=== PATIENT | female | born 1930 | race Caucasian/White ===

== ENCOUNTER 2017-09-30 10:56 | Outpatient (RCR) | payer MEDICARE, BC ==
[2016-08-19 13:26] VITALS: Ht 165.1 cm; Wt 64.8 kg
[2017-07-23] MEDS: HEPARIN FLSH (PORT) 500 UN/5ML IVP PRN (12:49)
[2017-08-22] MEDS: HEPARIN FLSH (PORT) 500 UN/5ML IVP PRN (10:25)
[2017-08-22 10:38] LABS: PLATELET COUNT, AUTOMATED 242 K/uL (150-450)
--- NOTE | 2017-08-22 11:43 | ONC Progress Note - NP.Halsey ---
Patient History Date of Service Aug 22, 2017 Reason For Visit/HPI Berta is here today for a routine follow up visit for surveillance of endometrial carcinoma. HISTORY OF PRESENT ILLNESS Berta is here today for a routine follow up visit for surveillance of endometrial carcinoma. She is doing well in general, except for residual chronic neuropathy due chemotherapy. She is currently taking gabapentin 600 mg twice daily, with only minimal relief. She has also increased urinary frequency and incontinence. She has chronic edema of the right lower extremity, but otherwise she denies acute concerns. Problem List (1) Adenocarcinoma of endometrium, stage 3 (2) Peripheral neuropathy Oncology History Patient is 86-year-old female who was diagnosed with stage IIIC-1 in April of 2014 after she developed abnormal vaginal bleeding. 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 Patient was referred to Dr. Kimberly Jenkins and underwent total abdominal hysterectomy with bilateral salpingo-oophorectomy with lymphadenectomy and pelvic washing done on May 12, 2014. 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 The tumor was 5 cm with 100% invasion into the myometrium with focal serosal involvement. Lymphovascular invasion was positive, but no cervical stromal or parametrial involvement. She was staged as stage IIIC-1 (pT3a pN1). She received adjuvant chemotherapy with carboplatin and Taxol for four cycles, completed on September. She also received external beam radiation therapy and intracavitary radiation therapy. Her last CA125 from 03/2017 was 5. CA125 from today is pending. Medical History Past Medical History 1. Uterine cancer. 2. Melanoma of the cheek in 2005. 3. Pancreatitis in 2012. 4. Atrial fibrillation. 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 Past Surgical History 1. Radiacl hysterectomy and BSO. 2. Mastectomy. 3. Tonsillectomy. Family History: FH: breast cancer MOTHER, Onset:68 FH: colon cancer GRANDFATHER, Onset:70 Psychosocial History Social History Patient never smoked. She reports she does not drink alcohol or use illicit drugs. Smoking History: No Smoking Status: Never Smoker Exposure to Second Hand Smoke?: No Medications and Allergies Active Scripts Gabapentin (GABAPENTIN) 300 Mg Capsule, 300 MG PO BID, #60 CAPSULE Prov:AMBROCIO GALDAMEZ MD 09/12/16 Reported Medications Metoprolol Tartrate (METOPROLOL TARTRATE) 25 Mg Tablet, 25 MG PO BID, TAB 08/22/17 Pyridoxine Hcl (VITAMIN B-6) 25 Mg Tablet, 25 MG PO DAILY 08/22/17 Cyanocobalamin (Vitamin B-12) (VITAMIN B-12) 1,000 Mcg Tablet, 1000 MCG PO DAILY 08/22/17 Furosemide (LASIX) 20 Mg Tablet, 1 TAB PO PRN, TAB 01/25/17 Potassium Gluconate (POTASSIUM) 99 Mg Tablet, 99 MG PO PRN 01/25/17 Apixaban (ELIQUIS) 2.5 Mg Tablet, 2.5 MG PO 09/14/16 Multivitamin (MULTI-VITAMIN DAILY) 1 Each Tablet, 1 EACH PO BID 08/16/16 Calcium Carbonate (CALCIUM) 500 Mg Tab.chew, 500 MG PO BID, TAB.CHEW 08/16/16 Discontinued Reported Medications Carvedilol (COREG) 12.5 Mg Tablet, 12.5 MG PO BID, #10 TAB 01/25/17 Allergies: Coded Allergies: No Known Drug Allergies (Unverified , 05/03/17) Review of System/Physical Exam Review of Systems Constitutional: Denies Appetite/Weight Change, Denies Fever/Chills/Sweating, Denies Recent Infection, Denies Other Cardiovascular: Denies Chest Pain, Denies Orthopnea, Denies Edema, Denies Palpitations, Denies Other Respiratory: Denies Cough, Denies Expectoration, Denies Hemoptysis, Denies Shortness of Breath, Denies Wheezing, Denies Other HEENT: No Tinnitus, No Hearing Problems, No Epistaxis, No Nasal Discharge, No Sore Throat, No Mouth Ulcers, No Other Gastrointestinal: Other, No Nausea, No Vomitting, No Diarrhea, No Constipation, No Heart Burn, No Swallowing Difficulties, No Abdominal Pain Genitourinary: Positive for Other (Urinary frequence and incontinence. ) Endocrine: Denies Diabetes, Denies Hot Flashes, Denies Thyroid Issues, Denies Enlarged Lymph Nodes, Denies Other Hematologic: Denies Bruising, Denies Bleeding, Denies Fatigue, Denies Weakness , Denies Other Musculoskeletal: Positive for Other (Weakness. ) Neurologic: Numbness of Hands, Tingling of Hands, Numbness of Feet, Tingling of Feet Psychiatric: No Anxiety, No Depression, No Other Skin: Denies Skin Rash, Denies Lumps, Denies Erythema, Denies Dry Skin, Denies Moist Skin, Denies Other Physical Exam Vital Signs Temperature: 97.0 Pulse: 115 BP Systolic: 128 BP Diastolic: 85 Respiratory Rate: 16 O2 SAT: 91 O2 Delivery: Room Air Height (inches) 65.00 Weight lb: 145 Weight oz: 6.0 Weight Kg (Med): 67.22 Pain: 0 General: Stable, Well Developed, Well Nourished, Not In Acute Distress, Not Other HEENT: No Trauma, No Conjunctivitis, No Icterus, No Mucositis, No Oral Thrush, No Sinus Tenderness, No Other Neck: Supple, No Thyromegaly, No Other Lungs: Clear to Auscultation, Not Percussed Bilaterally, Not Other Heart: Regular Rate, Regular Rhythm, No Gallops, No Murmurs Abdomen: Soft and Nontender, No Hepatosplenomegaly, No Masses Extremities: No Cyanosis, No Clubbing, No Edema, No Other Lymphadenopathy: None Psychiatric: Mood appears normal, Affect appears normal Skin: No Skin Rashes, No Bruising, No Purpura, No Moist Desquamation, No Dry Desquamation, No Erythema, No Mild Erythema, No Moderate Erythema, No Severe Erythema, No Induration, No Other Other Port in left upper chest noted. Diagnostic Studies Diagnostic Studies Laboratory Laboratory Tests 08/22/17 10:30 Laboratory Tests 08/22/17 10:30: White Blood Count 5.9, Red Blood Count 4.33, Hemoglobin 13.7, Hematocrit 39.9, Mean Corpuscular Volume 92.1, Mean Corpuscular Hemoglobin 31.6, Mean Corpuscular Hemoglobin Concent 34.3, Red Cell Distribution Width 14.7, Platelet Count 242, Mean Platelet Volume 6.6, Neutrophils (%) (Auto) 72.0, Lymphocytes (% ) (Auto) 16.1, Monocytes (%) (Auto) 8.5, Eosinophils (%) (Auto) 2.3, Basophils ( %) (Auto) 1.1, Nucleated RBC Relative Count (auto) 0.1, Neutrophils # (Auto) 4.2 , Lymphocytes # (Auto) 0.9, Monocytes # (Auto) 0.5, Eosinophils # (Auto) 0.1, Basophils # (Auto) 0.1, Nucleated RBC Absolute Count (auto) 0.01, Sodium Level 140, Potassium Level 4.1, Chloride Level 108, Carbon Dioxide Level 23, Blood Urea Nitrogen 13, Creatinine 0.80, Glomerular Filtration Rate Calc > 60.0, Random Glucose 86, Calcium Level 9.0, Total Bilirubin 0.7, Aspartate Amino Transf (AST/SGOT) 19, Alanine Aminotransferase (ALT/SGPT) 28, Alkaline Phosphatase 78, Total Protein 6.6, Albumin 3.8 Assessment and Plan Assessment & Plan 1. Stage IIIC (pT3a pN1c M0) endometrial adenocarcinoma, FIGO grade 3 with 100 % invasion of the myometrium. Berta received adjuvant chemotherapy with carboplatin and Taxol for six cycles, completed September 30, 2014. She received also adjuvant external beam radiation therapy and intracavitary seed implant therapy. She is doing very well clinically and without evidence of recurrent disease. CA-125 was 5 last visit 03/2017 and pending today. She will return to the office for a follow up visit in four months with CBC, CMP and CA125. She will have her port flushed monthly. 2. Chemotherapy-induced neuropathy. She will continue gabapentin 600 mg twice daily. 3. History of atrial fibrillation. Anticoagulated with Eliquis. 4. History of melanoma of the cheek in 2005. PLAN 1. Continue active surveillance. 2. Patient to return for follow up in 4 months with CBC, CMP and CA-125. 3. Continue Gabapentin 600 mg 2 times daily. 4. Patient to contact the clinic for any problems or concerns. I personally spent a total of 25 minutes in this visit. Of that 15 minutes was counseling/coordination of patient's care. See my note above for details. MAGO HARRELL MD Aug 22, 2017 11:43
[~2017-09-30] VITALS: Ht 165.1 cm; Wt 64.8 kg
[~2017-09-30 10:56] MED LIST: ACET-2007 PO; ALEN70TA2 PO; ALPR-429 PO; ALPR-445 PO; ALTEPLASE RECOMB 2 MG VIAL IVP PRN; AMIT-106 PO; APIX2.5T PO; APIX5TAB PO; CALC-18 PO; CALC-734 PO; CAR6.25 PO; CARV12.577 PO; CARV12.578 PO; CARV25TA77 PO; CARV25TA78 PO; CIPR-214 PO; CLON-327 PO; CLON1 PO; CYA1000 PO; CYAN50TA3 PO; DEXTROSE 5%(*) 100 ML BAG 100 ML IVPB PRN; DIAZ2TAB74 PO; DOC100 PO; DOCU-202 PO; DOCU-416 PO; FISH1200 PO; FURO20TA19 PO; GABA-503 PO; GABA-549 PO; LEVO-85 PO; LIDOCAINE/SOD BICARB 8.4% SYR ID PRN; LUTE10TA3 PO; MECL12.5 PO; METO25TA93 PO; MULT-885 PO; MULT1TAB54 PO; NIAC50TA13 PO; NS(*) 0.9% 100 ML BAG 100 ML IVPB PRN; NS(*) 0.9% 500 ML BAG 500 ML IV PRN; OMEG-36 PO; ONDA8TAB91 PO; PAN40 PO; PER PO; POTA99TA6 PO; PRA20 PO; PYRI25TA18 PO; SUC1 PO; TRAM-420 PO; WATER STERILE 10 ML VIAL IVP PRN; [UNRECOGNIZED DRUG - CODE] PO; [UNRECOGNIZED DRUG - CODE] PO; [UNRECOGNIZED DRUG - CODE] PO
[2017-09-30 11:04] VITALS: BP 112/58
[2017-09-30] MEDS: HEPARIN FLSH (PORT) 500 UN/5ML IVP PRN (11:39)
== END 2017-10-21 ==
LOC: SPU 10:56
PROVIDERS: ATTEND Internal Medicine Hematology
DX: Z85.42 Personal history of malignant neoplasm of other parts of uterus (principal); Z92.21 Personal history of antineoplastic chemotherapy; Z92.3 Personal history of irradiation; G62.9 Polyneuropathy, unspecified; I48.91 Unspecified atrial fibrillation; Z85.820 Personal history of malignant melanoma of skin; Z79.899 Other long term (current) drug therapy
CPT/HCPCS: 36591; 85025; 86304; 96523; J1642; 82040; 82247; 82310; 82374; 82435; 82565; 82947; 84075; 84132; 84155; 84295; 84450; 84460; 84520

== ENCOUNTER 2017-10-04 13:00 | Emergency (ER) | payer MEDICARE, BC ==
[2016-08-19 13:26] VITALS: Ht 165.1 cm; Wt 65.9 kg
[~2017-10-04] VITALS: Ht 165.1 cm; Wt 65.9 kg
[~2017-10-04 13:00] MED LIST changes: -ALTEPLASE RECOMB 2 MG VIAL IVP PRN; -DEXTROSE 5%(*) 100 ML BAG 100 ML IVPB PRN; -LIDOCAINE/SOD BICARB 8.4% SYR ID PRN; -NS(*) 0.9% 100 ML BAG 100 ML IVPB PRN; -NS(*) 0.9% 500 ML BAG 500 ML IV PRN; -WATER STERILE 10 ML VIAL IVP PRN
--- NOTE | 2017-10-04 13:06 | ER Report ---
History and Physical Time Seen By MD: 13:06 HPI/ROS CC: Palpitations HPI: 87-year-old female with past medical history of essential hypertension, vertigo , peripheral neuropathy, adenocarcinoma of the endometrium, atrial fibrillation transient, glaucoma, urinary tract infections, closed a history of fracture. Patient starting at approximately 10:30 this morning had a rapid heart rate which she assumed was atrial fibrillation. It is coming gone. She then had chest pressure. That has resolved but she did come to the emergency department. She was nauseated at that time and slight diaphoresis but at present she is without nausea or diaphoresis. Her shortness of breath has resolved. There are no other complaints. Her pain scale is 0 out of 10. The tachycardia was transient. ROS: 12 point review of systems essentially negative other than what's mentioned in history of present illness. NURSES AND OLD MEDICAL RECORDS: Reviewed PMH: Reviewed SURGICAL HX: Reviewed FAMILY HX: Noncontributory SOCIAL HX: Patient denies smoking alcohol or illicit drugs. VITAL SIGNS: Reviewed CONSTITUTIONAL: 87-year-old female in minimal to moderate distress. PHYSICAL EXAM: HEENT: Pupils equal round reactive to light and accommodate, EOMI, tympanic membranes pearly white umbo present with good light reflex. Lips dry mucous membranes moist gums nonbleeding uvula midline and rises equally with phonation, oropharynx noninjected, teeth intact. NECK: Neck supple, thyroid not appreciated, anterior and posterior cervical lymphadenopathy not appreciated. Trachea midline and rises equally with phonation. CARDIAC: S1-S2 regular rate rhythm no murmurs rubs or gallops. LUNGS: Lungs clear bilaterally posteriorly in all fraga. Good air movement. ABDOMEN: Abdomen soft, nondistended, bowel sounds active in all 4 quadrants, no bruits noted, no CVA tenderness. MUSCULOSKELETAL: Strength 5 out of 5 x 4 extremities, no deformities noted. NEUROLOGIC: Patient alert and oriented by 3 Allergies: Coded Allergies: No Known Drug Allergies (Unverified , 05/03/17) Home Meds Active Scripts Gabapentin (GABAPENTIN) 300 Mg Capsule, 300 MG PO BID, #60 CAPSULE Prov:AMBROCIO GALDAMEZ MD 09/12/16 Reported Medications Metoprolol Tartrate (METOPROLOL TARTRATE) 25 Mg Tablet, 25 MG PO BID, TAB 08/22/17 Pyridoxine Hcl (VITAMIN B-6) 25 Mg Tablet, 25 MG PO DAILY 08/22/17 Cyanocobalamin (Vitamin B-12) (VITAMIN B-12) 1,000 Mcg Tablet, 1000 MCG PO DAILY 08/22/17 Apixaban (ELIQUIS) 2.5 Mg Tablet, 2.5 MG PO 09/14/16 Multivitamin (MULTI-VITAMIN DAILY) 1 Each Tablet, 1 EACH PO BID 08/16/16 Calcium Carbonate (CALCIUM) 500 Mg Tab.chew, 500 MG PO BID, TAB.CHEW 08/16/16 Discontinued Reported Medications Furosemide (LASIX) 20 Mg Tablet, 1 TAB PO PRN, TAB 01/25/17 Potassium Gluconate (POTASSIUM) 99 Mg Tablet, 99 MG PO PRN 01/25/17 Hx Smoking: No Smoking Status: Never Smoker Exposure to Second Hand Smoke?: No Hx Substance Use Disorder: No Hx Alcohol Use: Yes (yanique before bedtime) Constitutional Vital Sign - Last 24 Hours 10/04/17 10/04/17 10/04/17 10/04/17 13:09 13:10 13:15 13:30 Temp 97.8 Pulse 63 64 ??? Resp 18 25 B/P (MAP) 144/83 (103) 144/83 Pulse Ox 97 96 O2 Delivery Room Air 10/04/17 10/04/17 10/04/17 10/04/17 13:36 13:45 14:00 14:36 Pulse 64 60 66 Resp 10 8 B/P (MAP) 156/83 (107) 125/76 (92) 155/76 (102) Pulse Ox 94 92 94 O2 Delivery Room Air 10/04/17 10/04/17 14:39 14:42 Pulse 68 69 B/P (MAP) 140/94 (109) 158/84 (108) Pulse Ox 96 95 O2 Delivery Room Air Room Air Medical Decision Making Data Points Result Diagram: 10/04/17 1320 10/04/17 1320 Laboratory Hematology Test 10/04/17 13:20 Red Blood Count 4.83 M/uL (4.17-5.56) Mean Corpuscular Volume 90.9 fL (80.0-96.0) Mean Corpuscular Hemoglobin 31.0 pg (26.0-33.0) Mean Corpuscular Hemoglobin Concent 34.1 g/dL (32.0-36.0) Red Cell Distribution Width 14.3 % (11.5-14.5) Mean Platelet Volume 7.1 fL (7.2-11.1) Neutrophils (%) (Auto) 77.5 % (39.4-72.5) Lymphocytes (%) (Auto) 12.8 % (17.6-49.6) Monocytes (%) (Auto) 6.7 % (4.1-12.4) Eosinophils (%) (Auto) 2.1 % (0.4-6.7) Basophils (%) (Auto) 0.9 % (0.3-1.4) Nucleated RBC Relative Count (auto) 0.1 /100WBC Neutrophils # (Auto) 4.7 K/uL (2.0-7.4) Lymphocytes # (Auto) 0.8 K/uL (1.3-3.6) Monocytes # (Auto) 0.4 K/uL (0.3-1.0) Eosinophils # (Auto) 0.1 K/uL (0.0-0.5) Basophils # (Auto) 0.1 K/uL (0.0-0.1) Nucleated RBC Absolute Count (auto) 0.00 K/uL D-Dimer Quantitative (PE/DVT) 0.31 ug/ml (0-0.50) Sodium Level 141 mmol/L (137-145) Potassium Level 3.7 mmol/L (3.5-5.0) Chloride Level 109 mmol/L (98-107) Carbon Dioxide Level 22 mmol/L (22-31) Blood Urea Nitrogen 17 mg/dl (7-18) Creatinine 0.80 mg/dl (0.52-1.04) Glomerular Filtration Rate Calc > 60.0 Random Glucose 106 mg/dl (75-110) Calcium Level 9.8 mg/dl (8.4-10.2) Magnesium Level 1.9 mg/dl (1.7-2.2) Total Bilirubin 0.7 mg/dl (0.2-1.3) Aspartate Amino Transf (AST/SGOT) 20 U/L (0-35) Alanine Aminotransferase (ALT/SGPT) 29 U/L (0-56) Alkaline Phosphatase 68 U/L (0-126) Troponin I < 0.012 ng/ml B-Type Natriuretic Peptide 581 pg/ml (0-100) Total Protein 6.8 gm/dl (6.3-8.2) Albumin 3.9 g/dl (3.5-5.0) Chemistry Test 10/04/17 13:20 White Blood Count 6.0 k/uL (4.5-11.0) Red Blood Count 4.83 M/uL (4.17-5.56) Hemoglobin 15.0 g/dL (12.0-16.0) Hematocrit 43.9 % (34.0-47.0) Mean Corpuscular Volume 90.9 fL (80.0-96.0) Mean Corpuscular Hemoglobin 31.0 pg (26.0-33.0) Mean Corpuscular Hemoglobin Concent 34.1 g/dL (32.0-36.0) Red Cell Distribution Width 14.3 % (11.5-14.5) Platelet Count 283 K/uL (150-450) Mean Platelet Volume 7.1 fL (7.2-11.1) Neutrophils (%) (Auto) 77.5 % (39.4-72.5) Lymphocytes (%) (Auto) 12.8 % (17.6-49.6) Monocytes (%) (Auto) 6.7 % (4.1-12.4) Eosinophils (%) (Auto) 2.1 % (0.4-6.7) Basophils (%) (Auto) 0.9 % (0.3-1.4) Nucleated RBC Relative Count (auto) 0.1 /100WBC Neutrophils # (Auto) 4.7 K/uL (2.0-7.4) Lymphocytes # (Auto) 0.8 K/uL (1.3-3.6) Monocytes # (Auto) 0.4 K/uL (0.3-1.0) Eosinophils # (Auto) 0.1 K/uL (0.0-0.5) Basophils # (Auto) 0.1 K/uL (0.0-0.1) Nucleated RBC Absolute Count (auto) 0.00 K/uL D-Dimer Quantitative (PE/DVT) 0.31 ug/ml (0-0.50) Glomerular Filtration Rate Calc > 60.0 Calcium Level 9.8 mg/dl (8.4-10.2) Magnesium Level 1.9 mg/dl (1.7-2.2) Total Bilirubin 0.7 mg/dl (0.2-1.3) Aspartate Amino Transf (AST/SGOT) 20 U/L (0-35) Alanine Aminotransferase (ALT/SGPT) 29 U/L (0-56) Alkaline Phosphatase 68 U/L (0-126) Troponin I < 0.012 ng/ml B-Type Natriuretic Peptide 581 pg/ml (0-100) Total Protein 6.8 gm/dl (6.3-8.2) Albumin 3.9 g/dl (3.5-5.0) Coagulation Test 10/04/17 13:20 D-Dimer Quantitative (PE/DVT) 0.31 ug/ml EKG/Imaging EKG Interpretation Neurosensory rhythm, ST of mL and possible dig effect, ventricular rate 64 bpm, DE interval 160 ms, QRS duration 84 seconds, QT 426 ms, QTC 439 ms. Imaging Chest x-ray: IMPRESSION: 1. Mild hyperexpansion lung fraga although no evidence of acute pulmonary consolidation CT of the brain: IMPRESSION: No acute intracranial abnormality. ED Course/Re-evaluation ED Course After the patient had been in the ED for a half she showed me that after she experienced a rapid heart rate she then had short visual disturbances. The 1st time she states that she is [place]. The 2nd time she states that she saw the mountains. Slightly nauseated after each event. We'll proceed with CT of the brain. Re-evaluation Medical decision making includes but not conclusive to atrial fibrillation, pneumonia, bacterial infection, Decision to Disposition Date: Oct 04, 2017 Decision to Disposition Time: 15:41 Depart Departure Latest Vital Signs Vital Signs Date Time Temp Pulse Resp B/P (MAP) Pulse Ox O2 Delivery O2 Flow Rate FiO2 10/04/17 14:42 69 158/84 (108) 95 Room Air 10/04/17 14:00 8 10/04/17 13:10 97.8 Impression: Primary Impression: Transient atrial fibrillation Condition: Improved Disposition: HOME OR SELF-CARE Referrals: MEMO OSEGUERA (PCP) Departure Forms: ER Transition Record, Medications Reconciliation, Patient Portal Information Patient Instructions: A-fib (Atrial Fibrillation) (ED) Additional Instructions: Follow-up with your regular doctor KOJO. I discussed with her what happened today and she wants to see you again sewn. The CT of your head is within normal limits there is no pathology. I and the staff wanted to thank you for allowing us to take care of your needs today in the emergency department at [facility]. We have tried to answer all of your questions and concerns. Please feel free to return to the emergency department for any further concerns or unanswered questions. RON ELKINS MD Oct 04, 2017 13:06
[2017-10-04] MEDS ORDERED: ONDANSETRON 4 MG/2 ML VIAL IVP ONE (13:15)
[2017-10-04] MEDS ORDERED: NS(*) 0.9% 1000 ML BAG 1,000 ML IV ONE (13:20)
[2017-10-04 13:35] LABS: PLATELET COUNT, AUTOMATED 283 K/uL (150-450)
--- NOTE | 2017-10-04 13:39 | RADIOLOGY IMAGING REPORT ---
FACILITY: [facility] - [place] PATIENT NAME: Berta Blake : 1930 MR: [id number] V: [id number] EXAM DATE: ORDERING PHYSICIAN: RON ELKINS TECHNOLOGIST: [place] [facility] [place] : 1930 Visit/Account:[id number] Date of Sevice: 10/04/2017 Exam type: CHEST SINGLE AP History: Chest pain Comparison: May 03, 2017. Findings: Again noted is hyperexpansion the lung fraga. There is no evidence of a pneumothorax or pneumomedia stinum. No evidence of focal infiltrates pleural effusions or pulmonary edema. Cardiac silhouette i s normal. Left-sided implanted port remains unchanged IMPRESSION: 1. Mild hyperexpansion lung fraga although no evidence of acute pulmonary consolidation Report Dictated By: Jesica Deshpande MD at 10/04/2017 1:34 PM Report E-Signed By: Jesica Deshpande MD at 10/04/2017 1:35 PM WSN:[email or web address]
--- NOTE | 2017-10-04 13:59 | EKG ---
FACILITY: [facility] - [place] PATIENT NAME: CAMACHO COLLADO : [id number] MR: [id number]: [id number] EXAM DATE: ORDERING PHYSICIAN: RON ELKINS TECHNOLOGIST: Test Reason : Blood Pressure : / mmHG Vent. Rate : 064 BPM Atrial Rate : 064 BPM P-R Int : 160 ms QRS Dur : 084 ms QT Int : 426 ms P-R-T Axes : 056 053 063 degrees QTc Int : 439 ms Normal sinus rhythm ST abnormality, possible digitalis effect Abnormal ECG When compared with ECG of 03-MAY-2017 15:47, Sinus rhythm has replaced Atrial fibrillation Vent. rate has decreased BY 45 BPM T wave inversion no longer evident in Lateral leads QT has shortened Confirmed by CHUNG LEVIN ([id number]) on 10/04/2017 6:56:33 PM Referred By: Confirmed By:CHUNG LEVIN
--- NOTE | 2017-10-04 15:19 | RADIOLOGY IMAGING REPORT ---
FACILITY: [facility] - [place] PATIENT NAME: Berta Blake : 1930 MR: [id number] V: [id number] EXAM DATE: ORDERING PHYSICIAN: RON ELKINS TECHNOLOGIST: Location: [facility] Patient: Berta Blake : 1930 Visit/Account:[id number] Date of Sevice: 10/04/[address] scan without contrast COMPARISONS: 08/16/2016 HISTORY: Syncope TECHNIQUE: Non-contrast head CT was performed with sagittal and coronal reformations. One of the following dose optimization techniques was utilized in the performance of this exam: autom ated exposure control; adjustment of the mA and/or kV according to patient size; or use of iterative reconstruction technique. Specific details can be referenced in the facility's radiology CT exam ope rational policy. FINDINGS: There is no intracranial hemorrhage, hydrocephalus or midline shift. The basal cisterns, mendoza-white differentiation, and convexity sulci are maintained. Normal orbital soft tissues. Unchanged perivascu lar space versus chronic lacunar infarct in the left basal ganglia. The mastoid air cells are clear. The paranasal sinuses are clear. The osseous structures are normal . IMPRESSION: No acute intracranial abnormality. Report Dictated By: Domingo Barker MD at 10/04/2017 3:11 PM Report E-Signed By: Domingo Barker MD at 10/04/2017 3:14 PM WSN:[id number]
[2017-10-04 15:30] VITALS: BP 148/89
== END 2017-10-04 15:55 | disposition home or self-care (01) ==
LOC: ER 13:02
DX: I48.91 Unspecified atrial fibrillation (principal); R06.02 Shortness of breath; R07.89 Other chest pain; R55 Syncope and collapse
CPT/HCPCS: 70450; 71045; 83735; 83880; 84484; 85025; 85379; 93005; 96360; 96361; 99284; J7030; 82040; 82247; 82310; 82374; 82435; 82565; 82947; 84075; 84132; 84155; 84295; 84450; 84460; 84520

== ENCOUNTER → 2017-10-11 | Outpatient (CLI) | payer MEDICARE, BC ==
[2016-08-19 13:26] VITALS: BMI 25.0
--- NOTE | 2017-10-11 12:01 | RADIOLOGY IMAGING REPORT ---
[place] [facility] [place]IENT NAME: Berta Blake : 1930 MR: [id number] V: [id number] EXAM DATE: ORDERING PHYSICIAN: MEMO OSEGUERA TECHNOLOGIST: Location: [facility] Patient: Berta Blake : 1930 Visit/Account:[id number] Date of Sevice: 10/11/2017 HIP LEFT W/O CONTRAST COMPARISON: None. HISTORY: Left hip pain since a fall 5 months ago. TECHNIQUE: Noncontrast multiplanar MRI of the pelvis and left hip utilizing T1 weighted and fluid se nsitive sequences. CONTRAST: None. FINDINGS: The femoral heads are well formed and seated within well formed acetabula. There is no femoral avascu lar necrosis, fracture or significant osteoarthritis. There is susceptibility artifact in the right p roximal femur, due to internal fixation hardware. This partially obscures the right femur and immedia tely adjacent right hip soft tissues. On the small onmac-ds-dtax images of the left hip there is abno rmal linear signal undercutting the anterior superior labrum consistent with a labral tear. There are moderate to advanced degenerative changes in the partially imaged lower lumbar spine. The s acroiliac joints and pubic symphysis are intact and unremarkable. There is no marrow signal abnormali ty or osseous malalignment. There is no hip effusion, iliopsoas or trochanteric bursitis. There is a 1.8 x 3.4 x 7.6 cm fluid col lection adjacent to the right hip greater trochanter most consistent with chronic postoperative fluid collection. There is no muscle edema. Probable mild atrophy of the right sided gluteal musculature on the coronal T1 series. The visualized tendinous origins and tendinous insertions of the gluteal and iliopsoas muscles are in tact. The visualized origins of the quadriceps and adductor muscle groups are intact. There is fluid signal consistent with partial-thickness tears at the hamstrings origins bilaterally, right more than left. Mild sigmoid diverticulosis. No other intrapelvic visceral abnormalities are seen. IMPRESSION: 1. Findings consistent with a tear in the anterior superior labrum of the left hip. 2. Moderate to advanced degenerative changes in the partially imaged lower lumbar spine. 3. Previous internal fixation of a right hip fracture without postoperative fluid collection in the right hip soft tissues adjacent to the greater trochanter. 4. Partial-thickness tears of the hamstrings origins bilaterally, right more than left. Report Dictated By: Cleveland Sanchez at 10/11/2017 11:46 AM Report E-Signed By: Cleveland Sanchez at 10/11/2017 11:57 AM WSN:[email or web address]
== END ==
LOC: MRI 10-04 03:45
PROVIDERS: ATTEND Nurse Practitioner Family
DX: S76.912A Strain of unspecified muscles, fascia and tendons at thigh level, left thigh, initial encounter (principal); S76.911A Strain of unspecified muscles, fascia and tendons at thigh level, right thigh, initial encounter

== ENCOUNTER 2017-10-25 12:33 | Emergency (ER) | payer MEDICARE, BC ==
[2016-08-19 13:26] VITALS: Ht 165.1 cm; Wt 65.9 kg
[~2017-10-25] VITALS: Ht 165.1 cm; Wt 65.9 kg
--- NOTE | 2017-10-25 12:37 | ER Report ---
History and Physical Time Seen By MD: 12:37 HPI/ROS CHIEF COMPLAINT: Chest pain HISTORY OF PRESENT ILLNESS: Patient is an 87-year-old female who was supposed to see cardiology today for episodes of "hot flashes, near syncopal episodes today on the way to the appointment she had an episode again the friend reports that she had a probable 5-10 seconds of where she slumped over and may have passed out she had rapid return to baseline mental status there is no history of shaking or seizure-like activity. She states that the symptoms have been happening for "years". She is coming to the emergency department because she states that she was RD on her way to her cardiology appointment. Since the symptoms were occurring she came to the emergency department instead. At her evaluation the emergency department she is completely symptom and complaint free. She denies having chest pressure or shortness of breath she denies chest pain. Patient is a nonsmoker and she is recovering from uterine cancer. REVIEW OF SYSTEMS: Constitutional: No fever, no chills. Eyes: No discharge. ENT: No sore throat. Cardiovascular: No chest pain, no palpitations. Hot flashes Respiratory: No cough, no shortness of breath. Gastrointestinal: No abdominal pain, no vomiting. Genitourinary: No hematuria. Musculoskeletal: No back pain. Skin: No rashes. Neurological: No headache. Possible syncopal episode Allergies: Coded Allergies: No Known Drug Allergies (Unverified , 05/03/17) Home Meds Reported Medications Metoprolol Tartrate (METOPROLOL TARTRATE) 25 Mg Tablet, 1 TAB PO BID, TAB 10/25/17 Apixaban (ELIQUIS) 5 Mg Tablet, 5 MG PO 10/25/17 Metoprolol Tartrate (METOPROLOL TARTRATE) 25 Mg Tablet, 1 TAB PO BID, TAB 10/25/17 Pyridoxine Hcl (VITAMIN B-6) 25 Mg Tablet, 25 MG PO DAILY 08/22/17 Cyanocobalamin (Vitamin B-12) (VITAMIN B-12) 1,000 Mcg Tablet, 1000 MCG PO DAILY 08/22/17 Calcium Carbonate (CALCIUM) 500 Mg Tab.chew, 500 MG PO BID, TAB.CHEW 08/16/16 Discontinued Reported Medications Metoprolol Tartrate (METOPROLOL TARTRATE) 25 Mg Tablet, 25 MG PO BID, TAB 08/22/17 Apixaban (ELIQUIS) 2.5 Mg Tablet, 2.5 MG PO 09/14/16 Multivitamin (MULTI-VITAMIN DAILY) 1 Each Tablet, 1 EACH PO BID 08/16/16 Discontinued Scripts Gabapentin (GABAPENTIN) 300 Mg Capsule, 300 MG PO BID, #60 CAPSULE Prov:AMBROCIO GALDAMEZ MD 09/12/16 Past Medical/Surgical History Oncology History Patient is 86-year-old female who was diagnosed with stage IIIC-1 in April of 2014 after she developed abnormal vaginal bleeding. 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 Patient was referred to Dr. Kimberly Jenkins and underwent total abdominal hysterectomy with bilateral salpingo-oophorectomy with lymphadenectomy and pelvic washing done on May 12, 2014. 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 The tumor was 5 cm with 100% invasion into the myometrium with focal serosal involvement. Lymphovascular invasion was positive, but no cervical stromal or parametrial involvement. She was staged as stage IIIC-1 (pT3a pN1). She received adjuvant chemotherapy with carboplatin and Taxol for four cycles, completed on September. She also received external beam radiation therapy and intracavitary radiation therapy. Her last CA125 from 03/2017 was 5. She is considered to be in remission at this stage Medical History Past Medical History 1. Uterine cancer. 2. Melanoma of the cheek in 2005. 3. Pancreatitis in 2012. 4. Atrial fibrillation. 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 Past Surgical History 1. Radiacl hysterectomy and BSO. 2. Mastectomy. 3. Tonsillectomy. Hx Smoking: No Smoking Status: Never Smoker Exposure to Second Hand Smoke?: No Hx Substance Use Disorder: No Hx Alcohol Use: Yes (yanique before bedtime) Constitutional Vital Sign - Last 24 Hours 10/25/17 10/25/17 10/25/17 10/25/17 12:33 12:40 12:41 12:48 Temp 98.0 Pulse ??? 68 69 Resp 20 36 B/P (MAP) 155/81 (105) 155/81 Pulse Ox 95 94 O2 Delivery Room Air 10/25/17 10/25/17 10/25/17 10/25/17 13:00 13:03 13:18 13:30 Pulse 67 70 B/P (MAP) 157/94 (115) 167/112 (130) Pulse Ox 94 95 10/25/17 10/25/17 13:33 13:48 Pulse 71 73 Pulse Ox 95 Physical Exam General Appearance: The patient is alert, has no immediate need for airway protection and no signs of toxicity. Eyes: Pupils equal and round no pallor or injection. ENT, Mouth: Mucous membranes are moist. Respiratory: There are no retractions, lungs are clear to auscultation. Cardiovascular: Regular rate and rhythm. Gastrointestinal: Abdomen is soft and non tender, no masses, bowel sounds normal. Neuro: Patient is awake alert oriented 3. Cranial nerves II through XII are intact and symmetrical Skin: Warm and dry, no rashes. Musculoskeletal: Neck is supple non tender. Extremities are nontender, nonswollen and have full range of motion. Medical Decision Making Data Points Result Diagram: 10/25/17 1310 10/25/17 1310 Laboratory Hematology Test 10/25/17 13:10 Red Blood Count 4.78 M/uL (4.17-5.56) Mean Corpuscular Volume 91.0 fL (80.0-96.0) Mean Corpuscular Hemoglobin 30.8 pg (26.0-33.0) Mean Corpuscular Hemoglobin Concent 33.9 g/dL (32.0-36.0) Red Cell Distribution Width 14.3 % (11.5-14.5) Mean Platelet Volume 7.1 fL (7.2-11.1) Neutrophils (%) (Auto) 71.3 % (39.4-72.5) Lymphocytes (%) (Auto) 16.5 % (17.6-49.6) Monocytes (%) (Auto) 9.8 % (4.1-12.4) Eosinophils (%) (Auto) 1.7 % (0.4-6.7) Basophils (%) (Auto) 0.7 % (0.3-1.4) Nucleated RBC Relative Count (auto) 0.0 /100WBC Neutrophils # (Auto) 4.1 K/uL (2.0-7.4) Lymphocytes # (Auto) 0.9 K/uL (1.3-3.6) Monocytes # (Auto) 0.6 K/uL (0.3-1.0) Eosinophils # (Auto) 0.1 K/uL (0.0-0.5) Basophils # (Auto) 0.0 K/uL (0.0-0.1) Nucleated RBC Absolute Count (auto) 0.00 K/uL Prothrombin Time 15.6 seconds (12.0-14.4) Prothromb Time International Ratio 1.23 Activated Partial Thromboplast Time 51 seconds (23-35) Sodium Level 140 mmol/L (137-145) Potassium Level 3.7 mmol/L (3.5-5.0) Chloride Level 103 mmol/L (98-107) Carbon Dioxide Level 24 mmol/L (22-31) Blood Urea Nitrogen 17 mg/dl (7-18) Creatinine 1.00 mg/dl (0.52-1.04) Glomerular Filtration Rate Calc 52.7 Random Glucose 83 mg/dl (75-110) Calcium Level 9.4 mg/dl (8.4-10.2) Total Bilirubin 0.7 mg/dl (0.2-1.3) Aspartate Amino Transf (AST/SGOT) 19 U/L (0-35) Alanine Aminotransferase (ALT/SGPT) 27 U/L (0-56) Alkaline Phosphatase 81 U/L (0-126) Troponin I < 0.012 ng/ml B-Type Natriuretic Peptide 486 pg/ml (0-100) Total Protein 6.6 gm/dl (6.3-8.2) Albumin 3.8 g/dl (3.5-5.0) Chemistry Test 10/25/17 13:10 White Blood Count 5.7 k/uL (4.5-11.0) Red Blood Count 4.78 M/uL (4.17-5.56) Hemoglobin 14.7 g/dL (12.0-16.0) Hematocrit 43.5 % (34.0-47.0) Mean Corpuscular Volume 91.0 fL (80.0-96.0) Mean Corpuscular Hemoglobin 30.8 pg (26.0-33.0) Mean Corpuscular Hemoglobin Concent 33.9 g/dL (32.0-36.0) Red Cell Distribution Width 14.3 % (11.5-14.5) Platelet Count 266 K/uL (150-450) Mean Platelet Volume 7.1 fL (7.2-11.1) Neutrophils (%) (Auto) 71.3 % (39.4-72.5) Lymphocytes (%) (Auto) 16.5 % (17.6-49.6) Monocytes (%) (Auto) 9.8 % (4.1-12.4) Eosinophils (%) (Auto) 1.7 % (0.4-6.7) Basophils (%) (Auto) 0.7 % (0.3-1.4) Nucleated RBC Relative Count (auto) 0.0 /100WBC Neutrophils # (Auto) 4.1 K/uL (2.0-7.4) Lymphocytes # (Auto) 0.9 K/uL (1.3-3.6) Monocytes # (Auto) 0.6 K/uL (0.3-1.0) Eosinophils # (Auto) 0.1 K/uL (0.0-0.5) Basophils # (Auto) 0.0 K/uL (0.0-0.1) Nucleated RBC Absolute Count (auto) 0.00 K/uL Prothrombin Time 15.6 seconds (12.0-14.4) Prothromb Time International Ratio 1.23 Activated Partial Thromboplast Time 51 seconds (23-35) Glomerular Filtration Rate Calc 52.7 Calcium Level 9.4 mg/dl (8.4-10.2) Total Bilirubin 0.7 mg/dl (0.2-1.3) Aspartate Amino Transf (AST/SGOT) 19 U/L (0-35) Alanine Aminotransferase (ALT/SGPT) 27 U/L (0-56) Alkaline Phosphatase 81 U/L (0-126) Troponin I < 0.012 ng/ml B-Type Natriuretic Peptide 486 pg/ml (0-100) Total Protein 6.6 gm/dl (6.3-8.2) Albumin 3.8 g/dl (3.5-5.0) Coagulation Test 10/25/17 13:10 Prothrombin Time 15.6 seconds Prothromb Time International Ratio 1.23 Activated Partial Thromboplast Time 51 seconds EKG/Imaging EKG Interpretation EKG shows normal sinus rhythm with nonspecific ST segment abnormality of ventricular rate of 67 bpm. This was compared to an EKG from 10/04/2017 which is essentially unchanged. Monitor Interpretation: Normal Sinus Rhythm Imaging FACILITY: [facility] PATIENT NAME: Berta Blake : 1930 MR: [id number] V: [id number] EXAM DATE: ORDERING PHYSICIAN: SHANA DIAZ TECHNOLOGIST: Location: [facility] [place] Patient: Berta Blake : 1930 Visit/Account:[id number] Date of Sevice: 10/25/2017 Exam type: CHEST SINGLE AP History: Chest Pain Comparison: 2017. Findings: Again noted is mild hyperexpansion of the lung fraga. There is no evidence of acute effusions, infiltrates or edema. No evidence of a pneumothorax or pneumomediastinum. Cardiac silhouette appears normal. There is a left IJ implanted port the distal tip projects over the superior vena cava. IMPRESSION: 1. Mild hyperexpansion of the lung fraga although no acute cardiopulmonary process is seen Report Dictated By: Jesica Deshpande MD at 10/25/2017 1:01 PM Report E-Signed By: Jesica Deshpande MD at 10/25/2017 1:02 PM WSN:[id number] FACILITY: [facility] PATIENT NAME: Berta Blake : 1930 MR: [id number] V: [id number] EXAM DATE: [id number] ORDERING PHYSICIAN: HSANA DIAZ TECHNOLOGIST: Location: [facility] [place] Patient: Berta Blake : 1930 Visit/Account:[id number] Date of Sevice: 10/25/2017 EXAMINATION: CT Head without intravenous contrast HISTORY: Syncope. TECHNIQUE: Axial images were obtained from the skull base to the vertex without intravenous contrast. Sagittal and coronal reformatted images are also submitted. One of the following dose optimization techniques was utilized in the performance of this exam: Automated exposure control; adjustment of the mA and/ or kV according to the patient's size; or use of an iterative reconstruction technique. Specific details can be referenced in the facility's radiology CT exam operational policy. COMPARISON: 10/04/2017. FINDINGS: Brain volume: Mild generalized volume loss. Ventricles: Negative. Acute ischemic changes: None. Hemorrhage: None. Masses / edema: None. Kincaid-white: Negative. White matter: Negative. Vessels: Calcified plaque of both carotid siphons. Extra-axial: Negative. 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 Visualized sinuses / orbits: Bilateral medial maxillary antrostomy. Otherwise negative. IMPRESSION: No acute intracranial abnormality. Report Dictated By: Akil Sharma MD at 10/25/2017 2:38 PM Report E-Signed By: Akil Sharma MD at 10/25/2017 2:41 PM WSN:[email or web address] ED Course/Re-evaluation ED Course 10/25/2017 2:39:06 pm patient is a 87-year-old female who had a near syncopal versus a short syncopal episode today. Patient has been having these for the past years which is why she is being evaluated by cardiology. At this time will be cardiac workup with EKG and troponin. I will also do CT imaging of the brain given the history of the patient's prior history of uterine cancer. She is currently symptom-free we'll continue to monitor in the emergency department for recurrent event. Decision to Disposition Date: Oct 25, 2017 Decision to Disposition Time: 14:54 Depart Departure Latest Vital Signs Vital Signs Date Time Temp Pulse Resp B/P (MAP) Pulse Ox O2 Delivery O2 Flow Rate FiO2 10/25/17 13:48 73 10/25/17 13:33 95 10/25/17 13:30 167/112 (130) 10/25/17 12:48 36 10/25/17 12:41 98.0 Room Air Impression: Primary Impression: Flushing reaction Additional Impression: Near syncope Condition: Improved Disposition: HOME OR SELF-CARE Referrals: MEMO OSEGUERA (PCP) 1 Week for follow up of near syncopal episode Patient Instructions: Near Syncope (ED) Additional Instructions: It is recommended that you rescheduling her appointment with cardiology as soon as possible for further evaluation Problem Qualifiers SHANA DIAZ MD Oct 25, 2017 12:37
[2017-10-25] MEDS ORDERED: ASPIRIN 81 MG CHEW PO ONE (12:40)
--- NOTE | 2017-10-25 13:06 | RADIOLOGY IMAGING REPORT ---
FACILITY[place] [facility] [place] PATIENT NAME: Berta Blake : 1930 MR: [id number] V: [id number] EXAM DATE: ORDERING PHYSICIAN: SHANA DIAZ TECHNOLOGIST: Location: [facility] [place] Patient: Berta Blake : 1930 Visit/Account:[id number] Date of Sevice: 10/25/2017 Exam type: CHEST SINGLE AP History: Chest Pain Comparison: or 2017. Findings: Again noted is mild hyperexpansion of the lung fraga. There is no evidence of acute effusions, infi ltrates or edema. No evidence of a pneumothorax or pneumomediastinum. Cardiac silhouette appears no rmal. There is a left IJ implanted port the distal tip projects over the superior vena cava. IMPRESSION: 1. Mild hyperexpansion of the lung fraga although no acute cardiopulmonary process is seen Report Dictated By: Jesica Deshpande MD at 10/25/2017 1:01 PM Report E-Signed By: Jesica Deshpande MD at 10/25/2017 1:02 PM WSN:[email or web address] ANNVLuis
[2017-10-25] MEDS ORDERED: METO25TA93 PO ×2 (13:16→13:18)
[2017-10-25] MEDS ORDERED: APIX5TAB PO (13:18)
[2017-10-25 13:30] LABS: PLATELET COUNT, AUTOMATED 266 K/uL (150-450)
[2017-10-25 13:33] LABS: INR 1.23
--- NOTE | 2017-10-25 14:46 | RADIOLOGY IMAGING REPORT ---
FACILITY: [facility] - [place] PATIENT NAME: Berta Blake : 1930 MR: [id number] V: [id number] EXAM DATE: ORDERING PHYSICIAN: SHANA DIAZ [place]CHNOLOG[place]: [place] [facility] [place]a [place] : 1930 Visit/Account:[id number] Date of Sevice: 10/25/2017 EXAMINATION: CT Head without intravenous contrast HISTORY: Syncope. TECHNIQUE: Axial images were obtained from the skull base to the vertex without intravenous contrast . Sagittal and coronal reformatted images are also submitted. One of the following dose optimization techniques was utilized in the performance of this exam: Autom ated exposure control; adjustment of the mA and/or kV according to the patient's size; or use of an i terative reconstruction technique. Specific details can be referenced in the facility's radiology C T exam operational policy. COMPARISON: 10/04/2017. FINDINGS: Brain volume: Mild generalized volume loss. Ventricles: Negative. Acute ischemic changes: None. Hemorrhage: None. Masses / edema: None. Kincaid-white: Negative. White matter: Negative. Vessels: Calcified plaque of both carotid siphons. Extra-axial: Negative. 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 Visualized sinuses / orbits: Bilateral medial maxillary antrostomy. Otherwise negative. IMPRESSION: No acute intracranial abnormality. Report Dictated By: Akil Sharma MD at 10/25/2017 2:38 PM Report E-Signed By: Akil Sharma MD at 10/25/2017 2:41 PM WSN:[email or web address]
[2017-10-25 14:58] VITALS: BP 159/106
[2017-10-25] MEDS ORDERED: HEPARIN FLSH (PORT) 500 UN/5ML IVP ONE (15:05)
--- NOTE | 2017-10-26 10:02 | EKG ---
FACILITY: [facility] [place] PATIENT NAME: CAMACHO COLLADO : [id number] MR: [id number] V: [id number] EXAM DATE: ORDERING PHYSICIAN: HEIDE CRAWFORD TECHNOLOGIST: LETICIA Mazariegos Reason : AFB Blood Pressure : / mmHG Vent. Rate : 067 BPM Atrial Rate : 067 BPM P-R Int : 144 ms QRS Dur : 074 ms QT Int : 408 ms P-R-T Axes : -28 052 049 degrees QTc Int : 431 ms Normal sinus rhythm Nonspecific ST abnormality Abnormal ECG No previous ECGs available Confirmed by CHUNG LEVIN ([id number]) on 10/26/2017 8:55:54 PM Referred By: Confirmed By:CHUNG LEVIN
== END 2017-10-25 15:19 | disposition home or self-care (01) ==
LOC: ER 12:40
DX: R55 Syncope and collapse (principal); R23.2 Flushing
CPT/HCPCS: 70450; 71045; 83880; 84484; 85025; 85610; 85730; 93005; 99284; A9270; J1642; 82040; 82247; 82310; 82374; 82435; 82565; 82947; 84075; 84132; 84155; 84295; 84450; 84460; 84520

== ENCOUNTER 2018-01-02 09:30 | Outpatient (RCR) | payer MEDICARE, BC ==
[2016-08-19 13:26] VITALS: Wt 67.0 kg
[2017-11-21 10:55] VITALS: BP 146/66
[~2018-01-02 09:30] MED LIST changes: +ALTEPLASE RECOMB 2 MG VIAL IVP PRN; -AMIO150P5 PO; +DENOSUMAB 60 MG/1 ML SYR SUBQ ONE; +DEXTROSE 5%(*) 100 ML BAG 100 ML IVPB PRN; +HEPARIN FLSH (PORT) 500 UN/5ML IVP PRN; +LIDOCAINE/SOD BICARB 8.4% SYR ID PRN; +NS(*) 0.9% 100 ML BAG 100 ML IVPB PRN; +NS(*) 0.9% 500 ML BAG 500 ML IV PRN; +WATER STERILE 10 ML VIAL IVP PRN
[2018-01-02 10:07] VITALS: BP 176/96
[2018-01-02] MEDS ORDERED: AMIO150P5 PO (10:10)
[2018-01-02] MEDS ORDERED: GABA-549 PO (10:10)
[2018-01-02 10:13] LABS: PLATELET COUNT, AUTOMATED 254 K/uL (150-450)
--- NOTE | 2018-01-02 18:49 | ONCOLOGY FOLLOW UP NOTE ---
EVENT DATE: January 02, 2018 DIAGNOSES 1. 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 CHIEF COMPLAINT The patient is here today for followup of her endometrial carcinoma. ONCOLOGY HISTORY Patient is 86-year-old female who was diagnosed with stage IIIC-1 in April of 2014 after she developed abnormal vaginal bleeding and underwent endometrial biopsy done on April 27, 2014 which was positive for endometrial adenocarcinoma , FIGO grade 2-3. Patient was referred to Dr. Kimberly Jenkins and underwent total abdominal hysterectomy with bilateral salpingo-oophorectomy with lymphadenectomy and pelvic washing done on May 12, 2014. 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 The tumor was 5 cm with 100% invasion into the myometrium with focal serosal involvement. Lymphovascular invasion was positive, but no cervical stromal or parametrial involvement. She was staged as stage IIIC-1 (pT3a pN1). She received adjuvant chemotherapy with carboplatin and Taxol for four cycles, completed on September. She also received radiation therapy with external beam radiation therapy and intracavitary radiation therapy. Her tumor marker currently is 8, which is very, very good. HISTORY OF PRESENT ILLNESS Patient is here today for followup of her endometrial carcinoma. She is doing fine currently except for tingling and numbness in the hands and feet from neuropathy. She is also weak, tired and fatigued all the time. She is complaining of epigastric pain since her financial systems analyst changed her cardiac medication, but denies any nausea, vomiting or back pain or diarrhea or constipation. PAST MEDICAL HISTORY 1. Uterine cancer. 2. Melanoma of the cheek in 2005. 3. Pancreatitis in 2012. 4. Atrial fibrillation. PAST SURGICAL HISTORY 1. Hysterectomy. 2. Mastectomy. 3. Tonsillectomy. SOCIAL HISTORY Patient never smoked. She reports she does not drink alcohol or use illicit drugs. FAMILY HISTORY Cancer in the brother and mother. MEDICATIONS 1. Fosamax 70 mg weekly. 2. Alprazolam 0.5 mg at night one-half p.r.n. 3. Eliquis 5 mg tablet twice daily. 4. Coreg 25 mg tablet two times daily. 5. Neurontin 600 mg twice daily. 6. Lomotil p.r.n. for diarrhea. ALLERGIES No known drug allergies. REVIEW OF SYSTEMS CONSTITUTIONAL: No appetite or weight change. No fever, chills or sweating. No recent infection. HEENT: Ears: No tinnitus or hearing problem. Nose: No nasal discharge or epistaxis. Throat: No sore throat or mouth ulcers. Eyes: No diplopia or visual changes. RESPIRATORY: No shortness of breath. No cough, expectoration or hemoptysis. CARDIOVASCULAR: She has swelling of the right lower extremity. GASTROINTESTINAL: No nausea or vomiting. No diarrhea or constipation. No change in bowel movements. No heartburn or swallowing difficulties. She has epigastric pain. No jaundice. No hematemesis, melena or rectal bleeding. GENITOURINARY: The patient has increased frequency of urine. MUSCULOSKELETAL: She has muscle aches after working in her backyard yesterday. NEUROLOGICAL: She has tingling and numbness in her hands and feet from neuropathy. HEMATOLOGIC/LYMPHATIC: No bleeding or easy bruising. She is weak, tired and fatigued. No enlarged lymph nodes. SKIN: No skin rash or lumps. PSYCHIATRIC: No anxiety or depression. PHYSICAL EXAMINATION GENERAL: Looks stable. Well-developed, well-nourished, and in no acute distress. VITAL SIGNS: Blood pressure 176/96, pulse 82 per minute, respirations 16 per minute, temperature 97.8, pulse ox 92% on room air. HEENT: Head: Atraumatic. No sinus tenderness to palpation. Eyes: No icterus or conjunctivitis. Mouth and throat: No oral thrush or mucositis. NECK: Supple. No cervical or supraclavicular lymphadenopathy. LUNGS: Clear to auscultation and percussion bilaterally. HEART: Regular rate and rhythm. No gallops, murmurs, clicks or rubs. ABDOMEN: Soft and lax. There is mild tenderness over the epigastrium, but no guarding or rebound tenderness. No hepatosplenomegaly. No masses. EXTREMITIES: There is some pitting edema of the right lower extremity. LYMPHATICS: No peripheral lymphadenopathy. NEUROLOGICAL: Conscious, alert and oriented times three. No focal motor or sensory deficits. PSYCHIATRIC: Mood and affect appear normal. SKIN: No skin rash, bruise or purpuric eruption. DIAGNOSTIC DATA Still pending. ASSESSMENT 1. Stage IIIC (pT3a pN1c M0) endometrial adenocarcinoma, FIGO grade 3 with 100 % invasion of the myometrium. Patient received adjuvant chemotherapy with carboplatin and Taxol for six cycles, completed September 30, 2014. She received also adjuvant radiation therapy with external beam radiation therapy and intracavitary seed implant. She is currently in remission. Her CA-125 was normal and level for today is pending. I am planning to continue followup in four months with CBC, chem panel and CA-125. 2. Epigastric pain. Patient thought this is the same pain she had when she had her pancreatitis. I am planning to add amylase and lipase level to her blood work today. 3. Chemotherapy-induced neuropathy which is stable, involving the hands and feet. 4. History of atrial fibrillation. 5. History of melanoma of the cheek in 2005. PLAN 1. Continue followup. 2. Patient to return in four months with CBC, chem panel, CA-125. 3. Continue gabapentin one capsule three times daily. 4. Add amylase and lipase to her blood work today. 5. Patient is to contact us for any new concerns or complaints. [facility]
== END 2018-01-10 16:23 | disposition home or self-care (01) ==
LOC: SPU 09:30
PROVIDERS: ATTEND Internal Medicine Hematology
DX: M85.80 Other specified disorders of bone density and structure, unspecified site (principal); Z85.42 Personal history of malignant neoplasm of other parts of uterus; R10.13 Epigastric pain; G62.0 Drug-induced polyneuropathy; Z92.21 Personal history of antineoplastic chemotherapy; Z92.3 Personal history of irradiation; R53.1 Weakness; R53.83 Other fatigue; K52.0 Gastroenteritis and colitis due to radiation
CPT/HCPCS: 36591; 82150; 83690; 85025; 86304; 96372; G0463; J0897; J1642; 82040; 82247; 82310; 82374; 82435; 82565; 82947; 84075; 84132; 84155; 84295; 84450; 84460; 84520; 99212

== ENCOUNTER → 2018-01-02 | Outpatient (CLI) | payer MEDICARE, BC ==
[2016-08-19 13:26] VITALS: BMI 25.0
[~2018-01-02] MED LIST changes: +AMIO150P5 PO
--- NOTE | 2018-01-03 09:15 | RADIOLOGY IMAGING REPORT ---
FACILITY: [facility] PATIENT NAME: CAMACHO COLLADO : [id number] MR: [id number] V: [id number] EXAM DATE: ORDERING PHYSICIAN: CHANTEL ZACARIAS TECHNOLOGIST: Suresh Uriarte EXAMINATION:TWO-DIMENSIONAL ECHOCARDIOGRAPH REASON:PAROXYSMAL ATRIAL FIBRILLATION 2D Measurements (normal values in centimeters) LV endLV endRV endVent.LV PostAorticLeftPercent DiastolicSystolicDiastolicSeptumWallRootAtriumShortening (3.5-5.7)(0.9-2.6)(0.6-1.1)(0.6-1.1)(2.0-3.7)(1.9-4.0)(25-35%) [id number] STROKE VOLUME: 51ml ESTIMATED EJECTION FRACTION:70% PARASTERNAL LONG AXIS: Overall left ventricular systolic function appears to be normal. Chamber sizes are normal with the right ventricle being the upper range of normal in size. The patient is in atrial fibrillation. No thrombi are noted & the left atrial appendage is not seen. Color examination of the valves reveals a trace of mitral insufficiency & some tricuspid insufficiency. Color examination of the aortic valve was unremarkable. The aortic valve appears to open normally. PARASTERNAL SHORT AXIS: Again overall left ventricular function appears to be normal. Patient is in atrial fibrillation. Right ventricle is the upper range of normal in size. The aortic valve is trileaflet in configuration & appears to open normally. There is mild aortic sclerosis present. Color examination of the pulmonic valve was unremarkable. Color examination of the tricuspid valve reveals a trace to mild amount of tricuspid insufficiency. APICAL FOUR AND TWO CHAMBER: Again normal left ventricular ejection fraction. Normal chamber sizes. The aortic valve area was measured within normal ranges at 2.3cm2. Mitral valve appears to open normally. There is some mild mitral annular calcification. Left atrial volume measured within normal ranges. Right ventricular function TAPSE was measured at 1.8 which is within normal ranges. Color examination of the mitral valve reveals a trace of mitral insufficiency. Color examination of the tricuspid valve reveals a trace to mild amount of tricuspid insufficiency. The tricuspid regurgitation Vmax measured 2.7m/sec. SUBCOSTAL VIEW: No pericardial effusion was noted. No atrioseptal or ventriculoseptal defects were appreciated. Strain measurements were all measured within normal ranges except for some decrease in inferolateral & inferior wall Strain at the basal levels. OVERALL IMPRESSION: 1. Normal left ventricular ejection fraction of approximately 70%. We were unable to accurately estimate the diastolic function as the patient is in atrial fibrillation. No thrombi were noted in any of the chambers but the left atrial appendage was not seen. 2. Normal chamber sizes with the right ventricle being the upper range of normal in size. Right ventricle appears to contract normally. 3. A trileaflet aortic valve with mild aortic sclerosis but no stenosis. 4. Mild mitral annular calcification with a trace to mild amount of mitral insufficiency. 5. Trace to mild amount of tricuspid insufficiency with estimated right ventricular systolic pressures within normal ranges at 32mm Hg. 6. In comparison to the examination done on 02/25/2012, no specific change except that the right ventricular systolic pressures & pulmonary pressures have decreased from 58mm Hg to 32mm Hg. Dictated by: Dany Palomino M.D. on 01/02/2018 at 14:53 Transcribed by: MADIE on 01/02/2018 at 16:05 Approved by: Dany Palomino M.D. on 01/03/2018 at 9:14 [facility]
== END ==
LOC: US 01:51
PROVIDERS: ATTEND Internal Medicine Cardiovascular Disease
DX: I48.91 Unspecified atrial fibrillation (principal); I25.10 Atherosclerotic heart disease of native coronary artery without angina pectoris; I07.1 Rheumatic tricuspid insufficiency
CPT/HCPCS: 93306

== ENCOUNTER → 2018-01-02 | Outpatient (CLI) | payer MEDICARE, BC ==
[2016-08-19 13:26] VITALS: BMI 25.0
== END ==
LOC: SPU 09:43
PROVIDERS: ATTEND Internal Medicine Cardiovascular Disease
DX: I48.0 Paroxysmal atrial fibrillation (principal)
CPT/HCPCS: 82465; 83718; 84443; 84478

== ENCOUNTER 2018-01-23 14:47 | Emergency (ER) | payer MEDICARE, BC ==
[2016-08-19 13:26] VITALS: BMI 25.0
--- NOTE | 2018-01-23 15:06 | ER Report ---
History and Physical Time Seen By MD: 14:50 Hx. of Stated Complaint: patient had a fall outside of an eating establishment. she does not remember the fall and laid on the ground for about 10 minutes HPI/ROS CHIEF COMPLAINT: Fall, head injury HISTORY OF PRESENT ILLNESS: Patient is a 87-year-old female accompanied by EMS who presents to ED with complaint of fall and head injury. She states that she has been told she will and states that she woke up under her friend's car. She states that she was eating at [employer] and they're walking out to get into the car but does not recall falling. Her friend did come to the ER and states that she was holding onto her but she fell quickly when they stepped off a curb and the patient had LOC for about 30 seconds. She denies any nausea or vomiting. She was complaining of some neck pain initially and was placed in a c-collar by EMS. She apparently at one time did complain of some chest pain but states that she is not having any chest pain at the moment. She does have a history of atrial fibrillation and is on Eliquis. Patient only states that the back of her head is painful. REVIEW OF SYSTEMS: Constitutional: No fever, no chills. Eyes: No discharge. ENT: No sore throat. Cardiovascular: No chest pain, no palpitations. Respiratory: No cough, no shortness of breath. Gastrointestinal: No abdominal pain, no vomiting. Genitourinary: No hematuria. Musculoskeletal: No back pain. Skin: No rashes. Neurological: See history of present illness. Allergies: Coded Allergies: No Known Drug Allergies (Unverified , 05/03/17) Home Meds Reported Medications Gabapentin (GABAPENTIN) 300 Mg Capsule, 600 MG PO BID, CAPSULE 01/02/18 Amiodarone HCl/D5w (Amiodarone 150 mg/100 ml-D5w) 150 Mg/100 Ml (1.5 Mg/Ml) Plast..bag, 200 MG PO BID 01/02/18 Apixaban (ELIQUIS) 5 Mg Tablet, 5 MG PO 10/25/17 Pyridoxine Hcl (VITAMIN B-6) 25 Mg Tablet, 25 MG PO DAILY 08/22/17 Cyanocobalamin (Vitamin B-12) (VITAMIN B-12) 1,000 Mcg Tablet, 1000 MCG PO DAILY 08/22/17 Calcium Carbonate (CALCIUM) 500 Mg Tab.chew, 500 MG PO BID, TAB.CHEW 08/16/16 Reviewed Nurses Notes: Yes Old Medical Records Reviewed: Yes Hx Smoking: No Smoking Status: Never Smoker Exposure to Second Hand Smoke?: No Hx Substance Use Disorder: No Hx Alcohol Use: Yes (yanique before bedtime) Constitutional Vital Sign - Last 24 Hours 01/23/18 01/23/18 01/23/18 01/23/18 14:49 14:52 15:00 15:02 Temp 97.7 Pulse ??? Resp 20 B/P (MAP) 185/120 185/120 (141) 182/120 (140) Pulse Ox 95 95 O2 Delivery Room Air 01/23/18 01/23/18 01/23/18 01/23/18 15:17 15:47 16:00 16:02 Pulse 79 75 72 B/P (MAP) 135/78 (97) Pulse Ox 94 94 92 Physical Exam General Appearance: The patient is alert, has no immediate need for airway protection and no signs of toxicity. Patient appears to be in no acute distress. Eyes: Pupils equal and round no pallor or injection. EOMs are full bilaterally. ENT, Mouth: Mucous membranes are moist. Respiratory: There are no retractions, lungs are clear to auscultation. Cardiovascular: Regular rate and rhythm. Gastrointestinal: Abdomen is soft and non tender, no masses, bowel sounds normal. Neurological: Cranial nerves II-12 intact. Skin: There is a small abrasion on the right scalp but no active bleeding. Musculoskeletal: Neck is supple non tender. C-collar is in place. Extremities are nontender, nonswollen and have full range of motion. DIFFERENTIAL DIAGNOSIS: After history and physical exam differential diagnosis was considered for head injury including but not limited to concussion, skull fracture, intraparenchymal contusion, subarachnoid, subdural and epidural hematoma. Medical Decision Making Data Points Result Diagram: 01/23/18 1522 01/23/18 1522 Laboratory Hematology Test 01/23/18 15:22 Red Blood Count 5.07 M/uL (4.17-5.56) Mean Corpuscular Volume 91.8 fL (80.0-96.0) Mean Corpuscular Hemoglobin 31.4 pg (26.0-33.0) Mean Corpuscular Hemoglobin Concent 34.2 g/dL (32.0-36.0) Red Cell Distribution Width 15.2 % (11.5-14.5) Mean Platelet Volume 6.8 fL (7.2-11.1) Neutrophils (%) (Auto) 74.1 % (39.4-72.5) Lymphocytes (%) (Auto) 15.8 % (17.6-49.6) Monocytes (%) (Auto) 7.2 % (4.1-12.4) Eosinophils (%) (Auto) 1.9 % (0.4-6.7) Basophils (%) (Auto) 1.0 % (0.3-1.4) Nucleated RBC Relative Count (auto) 0.0 /100WBC Neutrophils # (Auto) 4.0 K/uL (2.0-7.4) Lymphocytes # (Auto) 0.8 K/uL (1.3-3.6) Monocytes # (Auto) 0.4 K/uL (0.3-1.0) Eosinophils # (Auto) 0.1 K/uL (0.0-0.5) Basophils # (Auto) 0.1 K/uL (0.0-0.1) Nucleated RBC Absolute Count (auto) 0.00 K/uL Prothrombin Time 14.6 seconds (12.0-14.4) Prothromb Time International Ratio 1.14 Activated Partial Thromboplast Time 36 seconds (23-35) Sodium Level 142 mmol/L (137-145) Potassium Level 3.7 mmol/L (3.5-5.0) Chloride Level 105 mmol/L (98-107) Carbon Dioxide Level 24 mmol/L (22-31) Blood Urea Nitrogen 14 mg/dl (7-18) Creatinine 1.00 mg/dl (0.52-1.04) Glomerular Filtration Rate Calc 52.7 Random Glucose 117 mg/dl (75-110) Calcium Level 9.8 mg/dl (8.4-10.2) Total Bilirubin 0.6 mg/dl (0.2-1.3) Aspartate Amino Transf (AST/SGOT) 23 U/L (0-35) Alanine Aminotransferase (ALT/SGPT) 19 U/L (0-56) Alkaline Phosphatase 71 U/L (0-126) Troponin I < 0.012 ng/ml Total Protein 7.0 gm/dl (6.3-8.2) Albumin 4.1 g/dl (3.5-5.0) Chemistry Test 01/23/18 15:22 White Blood Count 5.3 k/uL (4.5-11.0) Red Blood Count 5.07 M/uL (4.17-5.56) Hemoglobin 15.9 g/dL (12.0-16.0) Hematocrit 46.5 % (34.0-47.0) Mean Corpuscular Volume 91.8 fL (80.0-96.0) Mean Corpuscular Hemoglobin 31.4 pg (26.0-33.0) Mean Corpuscular Hemoglobin Concent 34.2 g/dL (32.0-36.0) Red Cell Distribution Width 15.2 % (11.5-14.5) Platelet Count 240 K/uL (150-450) Mean Platelet Volume 6.8 fL (7.2-11.1) Neutrophils (%) (Auto) 74.1 % (39.4-72.5) Lymphocytes (%) (Auto) 15.8 % (17.6-49.6) Monocytes (%) (Auto) 7.2 % (4.1-12.4) Eosinophils (%) (Auto) 1.9 % (0.4-6.7) Basophils (%) (Auto) 1.0 % (0.3-1.4) Nucleated RBC Relative Count (auto) 0.0 /100WBC Neutrophils # (Auto) 4.0 K/uL (2.0-7.4) Lymphocytes # (Auto) 0.8 K/uL (1.3-3.6) Monocytes # (Auto) 0.4 K/uL (0.3-1.0) Eosinophils # (Auto) 0.1 K/uL (0.0-0.5) Basophils # (Auto) 0.1 K/uL (0.0-0.1) Nucleated RBC Absolute Count (auto) 0.00 K/uL Prothrombin Time 14.6 seconds (12.0-14.4) Prothromb Time International Ratio 1.14 Activated Partial Thromboplast Time 36 seconds (23-35) Glomerular Filtration Rate Calc 52.7 Calcium Level 9.8 mg/dl (8.4-10.2) Total Bilirubin 0.6 mg/dl (0.2-1.3) Aspartate Amino Transf (AST/SGOT) 23 U/L (0-35) Alanine Aminotransferase (ALT/SGPT) 19 U/L (0-56) Alkaline Phosphatase 71 U/L (0-126) Troponin I < 0.012 ng/ml Total Protein 7.0 gm/dl (6.3-8.2) Albumin 4.1 g/dl (3.5-5.0) Coagulation Test 01/23/18 15:22 Prothrombin Time 14.6 seconds Prothromb Time International Ratio 1.14 Activated Partial Thromboplast Time 36 seconds EKG/Imaging EKG Interpretation 12 lead EKG: Rhythm: Normal sinus rhythm, rate 78 beats friend [place]: normal QRS: normal ST segments: No acute ST changes identified. There is some slight T-wave inversion in V1 and V2. Imaging CT Head: IMPRESSION: 1. Soft tissue swelling and hematoma overlies the posterior calvarium at the midline. 2. No intracranial hemorrhage or skull fracture. 3. Stable chronic age-related changes. Report Dictated By: Dwayne Blake MD at 01/23/2018 3:54 PM Report E-Signed By: Dwayne Blake MD at 01/23/2018 4:[address] C-Spine: IMPRESSION: 1. No acute osseous findings along the cervical spine. 2. Chronic multilevel degenerative changes, greatest at C6-C7. Report Dictated By: Dwayne Blake MD at 01/23/2018 4:03 PM Report E-Signed By: Dwayne Blake MD at 01/23/2018 4:07 PM CXR: IMPRESSION: No significant abnormality identified. There is no change from the previous study. Report Dictated By: Troy Perdomo at 01/23/2018 3:30 PM Report E-Signed By: Troy Perdomo at 01/23/2018 3:32 PM ED Course/Re-evaluation ED Course Will obtain labs, CT of the head and C-spine as well as a chest x-ray and EKG. 01/23/2018 4:15:38 pm - discussed labs and imaging with patient. There is no intracranial bleed or fracture of the cervical spine. All of her lab work is essentially normal. Discussed signs and symptoms of worsening head injury and concussion precautions. Decision to Disposition Date: January 23, 2018 Decision to Disposition Time: 16:16 Depart Departure Latest Vital Signs Vital Signs Date Time Temp Pulse Resp B/P (MAP) Pulse Ox O2 Delivery O2 Flow Rate FiO2 01/23/18 16:02 72 92 01/23/18 16:00 135/78 (97) 01/23/18 14:49 97.7 20 Room Air Impression: Primary Impression: Head injury Condition: Improved Disposition: HOME OR SELF-CARE Referrals: MEMO OSEGUERA (PCP) Patient Instructions: Head Injury (ED) Additional Instructions: Monitor for signs and symptoms of worsening head injury including worsening headache, nausea, vomiting, numbness, tingling, vision changes. Follow-up with primary care provider in 2-3 days. If having any worsening or concerning symptoms may return to the emergency department. Problem Qualifiers Primary Impression: Head injury Encounter type: initial encounter Qualified Codes: S09.90XA - Unspecified injury of head, initial encounter GALEN CISNEROS PA-C January 23, 2018 15:06
--- NOTE | 2018-01-23 15:16 | EKG ---
FACILITY: [facility] PATIENT NAME: CAMACHO COLLADO : [id number] MR: [id number] V: [id number] EXAM DATE: ORDERING PHYSICIAN: GALEN CISNEROS TECHNOLOGIST: Ramiro Mazariegos Reason : Blood Pressure : / mmHG Vent. Rate : 078 BPM Atrial Rate : 078 BPM P-R Int : 126 ms QRS Dur : 090 ms QT Int : 396 ms P-R-T Axes : 000 057 055 degrees QTc Int : 451 ms Sinus rhythm Nonspecific ST findings Decreased R wave progression anteriorly Some artifact in several leads - repeat if needed Confirmed by MATT GALDAMEZ ([id number]) on 01/23/2018 4:48:28 PM Referred By: Confirmed By:MATT GALDAMEZ
[2018-01-23 15:32] LABS: PLATELET COUNT, AUTOMATED 240 K/uL (150-450)
--- NOTE | 2018-01-23 15:36 | RADIOLOGY IMAGING REPORT ---
[place] [facility] [place]IENT NAME: Berta Blake : 1930 MR: [id number] V: [id number] EXAM DATE: ORDERING PHYSICIAN: GALEN CISNEROS TECHNOLOGIST: Location: [facility] [place] Patient: Berta Blake : 1930 Visit/Account:[id number] Date of Sevice: 01/23/2018 Study: CHEST SINGLE AP Indication: Pain Comparison study: October 25, 2017 Findings: AP upright chest demonstrates the presence of an implanted port within the left chest. The tip the catheter overlies the SVC. There is no change from the previous study. There is no evidence of acute infiltrate. There is no evidence of pleural effusion or pneumothorax. T he bony structures are unremarkable. IMPRESSION: No significant abnormality identified. There is no change from the previous study. Report Dictated By: Troy Perdomo at 01/23/2018 3:30 PM Report E-Signed By: Troy Perdomo at 01/23/2018 3:32 PM WSN:[id number]
[2018-01-23 15:38] LABS: INR 1.14
[2018-01-23 16:00] VITALS: BP 135/78
--- NOTE | 2018-01-23 16:07 | RADIOLOGY IMAGING REPORT ---
FACILITY: [facility] PATIENT NAME: Berta Blake : 1930 MR: [id number] V: [id number] EXAM DATE: ORDERING PHYSICIAN: GALEN CISNEROS TECHNOLOGIST: [facility] Patient: Berta Blake : 1930 Visit/Account:[id number] Date of Sevice: 01/23/2018 EXAMINATION: CT head without IV contrast HISTORY: Fall. LOC. Head and neck pain. TECHNIQUE: Axial CT images of the head were obtained from the vertex to the skull base without IV c ontrast, with coronal and sagittal 2D reconstructed images. One of the following dose optimization techniques was utilized in the performance of this exam: Autom ated exposure control; adjustment of the mA and/or kV according to the patient's size; or use of an i terative reconstruction technique. Specific details can be referenced in the facility's radiology C T exam operational policy. COMPARISON: To 11/12/2017. FINDINGS: There is mild generalized parenchymal atrophy, with stable mild patchy low attenuation in the deep wh ite matter, compatible with chronic small vessel ischemic change. Intracranial vascular calcification s. Benign basal ganglia calcification bilaterally. No CT evidence of intracranial hemorrhage, mass lesion, or acute infarct. No midline shift or extra-a xial fluid collections. Kincaid-white differentiation is maintained. Superficial soft tissue swelling and hematoma overlies the posterior calvarium at the midline. No und erlying skull fracture. The calvarium is intact. The partially visualized paranasal sinuses and masto id air cells are unopacified. IMPRESSION: 1. Soft tissue swelling and hematoma overlies the posterior calvarium at the midline. 2. No intracranial hemorrhage or skull fracture. 3. Stable chronic age-related changes. Report Dictated By: Dwayne Blake MD at 01/23/2018 3:54 PM Report E-Signed By: Dwayne Blake MD at 01/23/2018 4:03 PM WSN:[id number]
--- NOTE | 2018-01-23 16:11 | RADIOLOGY IMAGING REPORT ---
[place] [facility] [place] Berta Blake : 1930 MR: [id number] V: [id number] EXAM DATE: ORDERING PHYSICIAN: GALEN CISNEROS TECHNOLOGIST: Location: [facility] [place] Patient: Berta Blake : 1930 Visit/Account:[id number] Date of Sevice: 01/23/2018 EXAMINATION: CT cervical spine without IV contrast HISTORY: Head and neck pain. Fall. LOC. TECHNIQUE: Thin axial CT images of the cervical spine were obtained without IV contrast, with sagit trisha and coronal 2D reconstructed images. One of the following dose optimization techniques was utilized in the performance of this exam: Autom ated exposure control; adjustment of the mA and/or kV according to the patient's size; or use of an i terative reconstruction technique. Specific details can be referenced in the facility's radiology C T exam operational policy. COMPARISON: 08/16/2016. FINDINGS: The cervical spine is negative for acute fracture or subluxation. Normal alignment. Vertebral body he ight is maintained. Stable chronic spondylotic changes in the cervical spine. There is severe disc space narrowing at C6- C7, with moderate disc space narrowing at C4-C5 and C5-C6. Mild multilevel facet arthropathy, greater on the left. The posterior elements are intact. The dens is intact. The C1 ring is intact, with normal alignment at the craniocervical junction. IMPRESSION: 1. No acute osseous findings along the cervical spine. 2. Chronic multilevel degenerative changes, greatest at C6-C7. Report Dictated By: Dwayne Blake MD at 01/23/2018 4:03 PM Report E-Signed By: Dwayne Blake MD at 01/23/2018 4:07 PM WSN:[id number]
== END 2018-01-23 16:26 | disposition home or self-care (01) ==
LOC: ER 15:00
DX: S09.90XA Unspecified injury of head, initial encounter (principal); W18.30XA Fall on same level, unspecified, initial encounter; Y92.511 Restaurant or cafe as the place of occurrence of the external cause; I48.2 Chronic atrial fibrillation; Z79.01 Long term (current) use of anticoagulants
CPT/HCPCS: 70450; 71045; 72125; 82040; 82247; 82310; 82374; 82435; 82565; 82947; 84075; 84132; 84155; 84295; 84450; 84460; 84484; 84520; 85025; 85610; 85730; 93005; 99283

== ENCOUNTER → 2018-01-23 | Outpatient (CLI) | payer MEDICARE, BC ==
[2016-08-19 13:26] VITALS: BMI 25.0
[~2018-01-23] MED LIST changes: -ALTEPLASE RECOMB 2 MG VIAL IVP PRN; +AMIO150P5 PO; -DENOSUMAB 60 MG/1 ML SYR SUBQ ONE; -DEXTROSE 5%(*) 100 ML BAG 100 ML IVPB PRN; -HEPARIN FLSH (PORT) 500 UN/5ML IVP PRN; -LIDOCAINE/SOD BICARB 8.4% SYR ID PRN; -NS(*) 0.9% 100 ML BAG 100 ML IVPB PRN; -NS(*) 0.9% 500 ML BAG 500 ML IV PRN; -WATER STERILE 10 ML VIAL IVP PRN
== END ==
LOC: AMB 14:31
PROVIDERS: ATTEND Nurse Practitioner
DX: R51 Headache (principal); R41.3 Other amnesia; W18.30XA Fall on same level, unspecified, initial encounter; Y92.481 Parking lot as the place of occurrence of the external cause
CPT/HCPCS: A0425; A0427

== ENCOUNTER 2018-04-17 11:37 | Outpatient (RCR) | payer MEDICARE, BC ==
[2016-08-19 13:26] VITALS: BMI 25.0
[2018-02-20 11:28] VITALS: BP 103/62
[2018-02-20] MEDS: HEPARIN FLSH (PORT) 500 UN/5ML IVP PRN (13:09)
[~2018-04-17 11:37] MED LIST changes: +ALTEPLASE RECOMB 2 MG VIAL IVP PRN; +DEXTROSE 5%(*) 100 ML BAG 100 ML IVPB PRN; +LIDOCAINE/SOD BICARB 8.4% SYR ID PRN; +NS(*) 0.9% 100 ML BAG 100 ML IVPB PRN; +NS(*) 0.9% 500 ML BAG 500 ML IV PRN; +WATER FOR INJ,STERILE 20 ML IVP PRN
[2018-04-17] MEDS: HEPARIN FLSH (PORT) 500 UN/5ML IVP PRN (11:57)
[2018-04-17 12:07] VITALS: BP 133/85
[2018-04-17 12:15] LABS: PLATELET COUNT, AUTOMATED 243 K/uL (150-450)
--- NOTE | 2018-04-17 18:05 | ONCOLOGY FOLLOW UP NOTE ---
EVENT DATE: April 17, 2018 DIAGNOSES 1. 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 CHIEF COMPLAINT The patient is here today for followup of her endometrial carcinoma. ONCOLOGY HISTORY Patient is 87-year-old female who was diagnosed with stage IIIC-1 in April of 2014 after she developed abnormal vaginal bleeding and underwent endometrial biopsy done on April 27, 2014 which was positive for endometrial adenocarcinoma , FIGO grade 2-3. Patient was referred to Dr. Kimberly Jenkins and underwent total abdominal hysterectomy with bilateral salpingo-oophorectomy with lymphadenectomy and pelvic washing done on May 12, 2014. 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 The tumor was 5 cm with 100% invasion into the myometrium with focal serosal involvement. Lymphovascular invasion was positive, but no cervical stromal or parametrial involvement. She was staged as stage IIIC-1 (pT3a pN1). She received adjuvant chemotherapy with carboplatin and Taxol for four cycles, completed on September. She also received radiation therapy with external beam radiation therapy and intracavitary radiation therapy. Her tumor marker currently is 8, which is very, very good. HISTORY OF PRESENT ILLNESS Patient is here today for followup of her endometrial carcinoma. She is doing fine currently. She has some pain in her legs. She has some neuropathy in her hands and feet from previous chemotherapy. She is weak, tired and fatigued. PAST MEDICAL HISTORY 1. Uterine cancer. 2. Melanoma of the cheek in 2005. 3. Pancreatitis in 2012. 4. Atrial fibrillation. PAST SURGICAL HISTORY 1. Hysterectomy. 2. Mastectomy. 3. Tonsillectomy. SOCIAL HISTORY Patient never smoked. She reports she does not drink alcohol or use illicit drugs. FAMILY HISTORY Cancer in the brother and mother. MEDICATIONS 1. Fosamax 70 mg weekly. 2. Alprazolam 0.5 mg at night one-half p.r.n. 3. Eliquis 5 mg tablet twice daily. 4. Coreg 25 mg tablet two times daily. 5. Neurontin 600 mg twice daily. 6. Lomotil p.r.n. for diarrhea. ALLERGIES No known drug allergies. REVIEW OF SYSTEMS CONSTITUTIONAL: No appetite or weight change. No fever, chills or sweating. No recent infection. HEENT: Ears: No tinnitus or hearing problem. Nose: No nasal discharge or epistaxis. Throat: No sore throat or mouth ulcers. Eyes: No diplopia or visual changes. RESPIRATORY: No shortness of breath. No cough, expectoration or hemoptysis. CARDIOVASCULAR: She has swelling of the right lower extremity. GASTROINTESTINAL: No nausea or vomiting. No diarrhea or constipation. No change in bowel movements. No heartburn or swallowing difficulties. She has epigastric pain. No jaundice. No hematemesis, melena or rectal bleeding. GENITOURINARY: The patient has increased frequency of urine. MUSCULOSKELETAL: She has pain in the legs. NEUROLOGICAL: She has neuropathy in her hands and feet. HEMATOLOGIC/LYMPHATIC: No bleeding or easy bruising. She is weak, tired and fatigued. No enlarged lymph nodes. SKIN: No skin rash or lumps. PSYCHIATRIC: No anxiety or depression. PHYSICAL EXAMINATION GENERAL: Looks stable. Well-developed, well-nourished, and in no acute distress. VITAL SIGNS: Blood pressure 133/85, pulse 89 per minute, respirations 16 per minute, temperature 97.3, pulse ox 91% on room air. HEENT: Head: Atraumatic. No sinus tenderness to palpation. Eyes: No icterus or conjunctivitis. Mouth and throat: No oral thrush or mucositis. NECK: Supple. No cervical or supraclavicular lymphadenopathy. LUNGS: Clear to auscultation and percussion bilaterally. HEART: Regular rate and rhythm. No gallops, murmurs, clicks or rubs. ABDOMEN: Soft and lax. There is mild tenderness over the epigastrium, but no guarding or rebound tenderness. No hepatosplenomegaly. No masses. EXTREMITIES: There is some pitting edema of the right lower extremity. LYMPHATICS: No peripheral lymphadenopathy. NEUROLOGICAL: Conscious, alert and oriented times three. No focal motor or sensory deficits. PSYCHIATRIC: Mood and affect appear normal. SKIN: No skin rash, bruise or purpuric eruption. DIAGNOSTIC DATA CBC shows white count 6.3, hemoglobin 13.6, hematocrit 39.1, platelets 243,000. The CA-125 is still pending. ASSESSMENT 1. Stage IIIC (pT3a pN1c M0) endometrial adenocarcinoma, FIGO grade 3 with 100 % invasion of the myometrium. Patient received adjuvant chemotherapy with carboplatin and Taxol for six cycles, completed September 30, 2014. She received also adjuvant radiation therapy with external beam radiation therapy and intracavitary seed implant. She is currently in remission. Her CA-125 was normal and level for today is pending. I am planning to continue followup. I will see her again in four months with CBC, chem panel and CA-125. By the end of the year patient will complete four years and I will see her after that every six months. 2. Chemotherapy-induced neuropathy which is stable, involving the hands and feet. Will continue to monitor. 3. History of atrial fibrillation. 4. History of melanoma of the cheek in 2005. PLAN 1. Continue followup. 2. Patient to return in four months with CBC, chem panel, CA-125. 3. Continue gabapentin one capsule three times daily. 4. Patient is to contact us for any new concerns or complaints. MTDD
== END 2018-04-18 09:56 | disposition home or self-care (01) ==
LOC: SPU 11:37
PROVIDERS: ATTEND Internal Medicine Hematology
DX: C54.1 Malignant neoplasm of endometrium (principal); G62.9 Polyneuropathy, unspecified; Z90.710 Acquired absence of both cervix and uterus; R53.83 Other fatigue; R53.1 Weakness; I48.91 Unspecified atrial fibrillation
CPT/HCPCS: 36591; 85025; 86304; 96523; G0463; J1642; 82040; 82247; 82310; 82374; 82435; 82565; 82947; 84075; 84132; 84155; 84295; 84450; 84460; 84520; 99212

== ENCOUNTER → 2018-04-17 | Outpatient (CLI) | payer MEDICARE, BC ==
[2016-08-19 13:26] VITALS: BMI 25.0
[~2018-04-17] MED LIST changes: +DENOSUMAB 60 MG/1 ML SYR SUBQ ONE
== END ==
LOC: SPU 07:38
PROVIDERS: ATTEND Nurse Practitioner Family
DX: M81.0 Age-related osteoporosis without current pathological fracture (principal)
CPT/HCPCS: 96372; J0897

== ENCOUNTER → 2018-04-17 | Outpatient (CLI) | payer MEDICARE, BC ==
[2016-08-19 13:26] VITALS: BMI 25.0
[~2018-04-17] MED LIST changes: -DENOSUMAB 60 MG/1 ML SYR SUBQ ONE
== END ==
LOC: SPU 11:44
PROVIDERS: ATTEND Nurse Practitioner Family
DX: M81.0 Age-related osteoporosis without current pathological fracture (principal); R53.81 Other malaise; E87.8 Other disorders of electrolyte and fluid balance, not elsewhere classified; E78.01 Familial hypercholesterolemia; E53.8 Deficiency of other specified B group vitamins; E55.9 Vitamin D deficiency, unspecified
CPT/HCPCS: 82306; 82465; 82607; 83718; 84443; 84478

== ENCOUNTER → 2018-05-28 | Outpatient (CLI) | payer MEDICARE, BC ==
[2016-08-19 13:26] VITALS: BMI 25.0
[~2018-05-28] MED LIST changes: -ALTEPLASE RECOMB 2 MG VIAL IVP PRN; -DEXTROSE 5%(*) 100 ML BAG 100 ML IVPB PRN; -LIDOCAINE/SOD BICARB 8.4% SYR ID PRN; -NS(*) 0.9% 100 ML BAG 100 ML IVPB PRN; -NS(*) 0.9% 500 ML BAG 500 ML IV PRN; -WATER FOR INJ,STERILE 20 ML IVP PRN
--- NOTE | 2018-05-28 17:25 | RADIOLOGY IMAGING REPORT ---
FACILITY: [facility] PATIENT NAME: Berta Blake : 1930 MR: [id number] V: [id number] EXAM DATE: ORDERING PHYSICIAN: TITUS BERNAL TECHNOLOGIST: Location[place] [facility] [place] Patient: Berta lBake : 1930 Visit/Account:[id number] Date of Sevice: 05/28/2018 L SPINE W/O CONTRAST Provided history: Left hip and low back pain Additional pertinent history: none TECHNIQUE: Multiplanar multisequence lumbar MRI was performed without intravenous contrast. COMPARISON STUDIES: No relevant priors FINDINGS: Segment numbering: Lumbosacral junction at L5-S1. No transitional segment. Extra-spinal soft tissues: Negative Alignment: Normal Osseous signal pattern: Mild Modic 1 changes surround the L3-4 disc. Moderate anterior wedging at T12 appears old. There are multiple old Schmorl's nodes. Distal thoracic cord / conus / cauda equina: negative Disc Spaces: Lower T spine: Advanced narrowing at T11-12 and degeneration at T12-L1. No herniation or significant stenosis at these levels. L1-L2: The disk reveals moderate-severe narrowing and degeneration. Prominent bulge of the disc m ore prominent the right than left. No rafa herniation or significant central stenosis. Lateralization of end-plate spurs and bilateral facet hypertrophy results in mild narrowing of the fo ramina. L2-L3: The disk reveals moderate-severe narrowing and degeneration. There is a large contained central disc herniation that extends behind the upper L3 body maintain a connection to the disc of or igin. This measures up to 19 mm craniocaudal diameter, 11 mm AP diameter and 18 mm transverse. This r esults in severe compromise of the central canal. Both lateral recesses are severely effaced. Lateralization of end-plate spurs and bilateral facet hypertrophy results in moderate left and only m ild right foraminal narrowing. L3-L4: The disk reveals moderate-severe narrowing and degeneration. Prominent bulge of the dis c without herniation or severe central stenosis. A left foraminal disc protrusion and facet hypertrophy severely compromises the left foramen displaci ng and deforming the exiting left L3 nerve. Right foramen only mildly narrowed. L4-L5: The disk reveals severe narrowing and degeneration. Mild broad based asymmetric left la teralizing disc-osteophyte complex without herniation or central stenosis. Left lateral recess mildly narrowed. Lateralization of end-plate spurs and bilateral facet hypertrophy results in mild to moderate narrowi ng of both foramina. L5-S1: The disk reveals moderate- severe narrowing and degeneration. Moderate right central di sk-osteophyte complex minimally deforms the ventral thecal sac without compromise of the canal. Lateralization of end-plate spurs and bilateral facet hypertrophy results in severe left and moderate right foraminal narrowing. IMPRESSION: 1. The most significant finding is severe central stenosis at L2-3 secondary to a large contained dis c herniation. 2. Additional potentially significant findings include severe narrowing of the left L3-4 foramen and the left L5-S1 foramen. Report called to TITUS BERNAL, 05/28/2018 4:49 PM. Report Dictated By: Burt Lacy MD at 05/28/2018 4:49 PM Report E-Signed By: Burt Lacy MD at 05/28/2018 5:21 PM WSN:[id number]
--- NOTE | 2018-05-28 17:26 | RADIOLOGY IMAGING REPORT ---
FACILITY: [facility] - [place] PATIENT NAME: Berta Blake : 1930 MR: [id number] V: [id number] EXAM DATE: ORDERING PHYSICIAN: TITUS BERNAL TECHNOLOGIST: Location: [facility] - [place] Patient: Berta Blake : 1930 Visit/Account:[id number] Date of Sevice: 05/28/2018 PELVIS W/O CONTRAST Provided history: Left hip and low back pain Additional pertinent history: none TECHNIQUE: Multiplanar multisequence MRI of the pelvis was performed without intravenous contrast. Additional focused sequences: none COMPARISON STUDIES: Left hip MRI 10/11/17 FINDINGS: There is a persisting fluid collection along the posterior lateral margin of the proximal right femur today measuring up to 2.4 x 4.4 cm transverse diameter and 6.7 cm craniocaudal not substantially ventura nged from prior exam. Fixation hardware grossly unchanged in the right hip. No abnormal signal develo ping in the femoral head or neck. The left, normal signal is maintained femoral head neck and proximal shaft. No joint effusion. Potent ial tear of the posterior labrum is mostly obscured by motion artifact on this exam but appears to be best seen on coronal image 9 of series 7. That is grossly unchanged from prior. Minor degenerative cyst formation the posterior right iliac bone is stable. Minimal increased T2 hype rintensity in the sacral margin of the right SI joint. No changes in the SI joint interim. Soft tissues otherwise the pelvis are negative. There is a well-defined fluid collection at the right ischio-hamstring junction from an old tear and minimal similar changes on the left, stable from prior. IMPRESSION: 1. Refer to comments made on the MRI lumbar spine which probably accounts for the patient's left hip and lower back pain. 2. No new significant abnormalities of the left hip. Probable labral tear is difficult to demonstrate today due to motion artifact. 3. Persisting fluid collection adjacent to the right hip, little changed. 4. Persisting fluid collection at the right ischio-hamstring junction from an old tear. Minimal simil ar changes on the left also stable. Report called to TITUS BERNAL, 05/28/2018 4:57 PM. Report Dictated By: Burt Lacy MD at 05/28/2018 4:57 PM Report E-Signed By: Burt Lacy MD at 05/28/2018 5:21 PM WSN:[id number]
== END ==
LOC: MRI 11:12
PROVIDERS: ATTEND Nurse Practitioner Family
DX: M48.061 Spinal stenosis, lumbar region without neurogenic claudication (principal)
CPT/HCPCS: 72148; 72195

== ENCOUNTER 2018-08-07 13:03 | Inpatient (IN) | payer MEDICARE, BC ==
[2016-08-19 13:26] VITALS: Ht 165.1 cm; Wt 70.3 kg
[~2018-08-07] VITALS: Ht 165.1 cm; Wt 70.3 kg
[~2018-08-07 13:03] MED LIST changes: -ACET-2708 PO; -AMIO200T49 PO; -ONDA4TAB97 PO; -PANT40TA65 PO; -SUCR1TAB51 PO
[2018-08-07] MEDS ORDERED: NS(*) 0.9% 1000 ML BAG 1,000 ML IV ONE (13:15)
[2018-08-07 13:22] LABS: PLATELET COUNT, AUTOMATED 322 K/uL (150-450)
--- NOTE | 2018-08-07 13:40 | ER Report ---
History and Physical Time Seen By MD: 13:10 Hx. of Stated Complaint: PATIENT STARTED HAVING EPIGASTRIC PAIN, NAUSEA AND VOMITING FOR ABOUT 4HOURS. HPI/ROS CHIEF COMPLAINT: Vomiting HISTORY OF PRESENT ILLNESS: Patient awoke this morning feeling mildly uncomfortable. At approximately 10 she began to have epigastric abdominal pain and started vomiting food contents. Patient has had retching multiple times though minimal vomit. Patient has continued epigastric gnawing pain that feels like prior pancreatitis. Patient has no shortness of breath, chest pain, myalgias, fever, UTI symptoms. She has no sick contacts. She has no diarrhea or constipation. Pain is nonradiating. Pain is 7 out of 10. REVIEW OF SYSTEMS: Constitutional: No fever, no chills. Eyes: No discharge. ENT: No sore throat. Cardiovascular: No chest pain, no palpitations. Respiratory: No cough, no shortness of breath. Gastrointestinal: above Genitourinary: No hematuria. Musculoskeletal: No back pain. Skin: No rashes. Neurological: No headache. Remainder of the 14 system rev: Yes Allergies: Coded Allergies: No Known Drug Allergies (Unverified , 08/07/18) Home Meds Reported Medications Gabapentin (GABAPENTIN) 300 Mg Capsule, 600 MG PO BID, CAPSULE 01/02/18 Amiodarone HCl/D5w (Amiodarone 150 mg/100 ml-D5w) 150 Mg/100 Ml (1.5 Mg/Ml) Plast..bag, 200 MG PO BID 01/02/18 Apixaban (ELIQUIS) 5 Mg Tablet, 5 MG PO 10/25/17 Pyridoxine Hcl (VITAMIN B-6) 25 Mg Tablet, 25 MG PO DAILY 08/22/17 Cyanocobalamin (Vitamin B-12) (VITAMIN B-12) 1,000 Mcg Tablet, 1000 MCG PO DAILY 08/22/17 Calcium Carbonate (CALCIUM) 500 Mg Tab.chew, 500 MG PO BID, TAB.CHEW 08/16/16 Reviewed Nurses Notes: Yes Old Medical Records Reviewed: Yes Hx Smoking: No Smoking Status: Never Smoker Exposure to Second Hand Smoke?: No Hx Substance Use Disorder: No Hx Alcohol Use: Yes (yanique before bedtime) Constitutional Vital Sign - Last 24 Hours 08/07/18 08/07/18 08/07/18 08/07/18 13:07 13:18 13:30 13:33 Temp 98.7 Pulse 111 108 103 Resp 14 B/P (MAP) 122/99 105/85 (92) Pulse Ox 94 94 91 O2 Delivery Room Air 08/07/18 08/07/18 08/07/18 13:48 14:00 14:03 Pulse 100 ??? B/P (MAP) 111/75 (87) Pulse Ox 90 91 Physical Exam General Appearance: The patient is alert, has no immediate need for airway protection and no signs of toxicity. Eyes: Pupils equal and round no pallor or injection. ENT, Mouth: Mucous membranes are moist. Respiratory: There are no retractions, lungs are clear to auscultation. Cardiovascular: Regular rate and rhythm. Gastrointestinal: epigastric ttp Neurological: alert, moves all ext Skin: Warm and dry, no rashes. Musculoskeletal: Extremities are nontender; baseline rle edema, and have full range of motion. DIFFERENTIAL DIAGNOSIS: After history and physical exam differential diagnosis was considered for abdominal pain including but not limited to obstruction, aaa, appendicitis, cholecystitis, gastritis and urinary tract infection. Medical Decision Making Data Points Result Diagram: 08/07/18 1256 08/07/18 1256 Laboratory Hematology Test 08/07/18 12:56 08/07/18 14:10 Red Blood Count 4.01 M/uL (4.17-5.56) Mean Corpuscular Volume 93.3 fL (80.0-96.0) Mean Corpuscular Hemoglobin 31.4 pg (26.0-33.0) Mean Corpuscular Hemoglobin Concent 33.6 g/dL (32.0-36.0) Red Cell Distribution Width 15.7 % (11.5-14.5) Mean Platelet Volume 6.7 fL (7.2-11.1) Neutrophils (%) (Auto) 76.8 % (39.4-72.5) Lymphocytes (%) (Auto) 15.7 % (17.6-49.6) Monocytes (%) (Auto) 6.5 % (4.1-12.4) Eosinophils (%) (Auto) 0.5 % (0.4-6.7) Basophils (%) (Auto) 0.5 % (0.3-1.4) Nucleated RBC Relative Count (auto) 0.1 /100WBC Neutrophils # (Auto) 8.2 K/uL (2.0-7.4) Lymphocytes # (Auto) 1.7 K/uL (1.3-3.6) Monocytes # (Auto) 0.7 K/uL (0.3-1.0) Eosinophils # (Auto) 0.1 K/uL (0.0-0.5) Basophils # (Auto) 0.0 K/uL (0.0-0.1) Nucleated RBC Absolute Count (auto) 0.01 K/uL Sodium Level 137 mmol/L (137-145) Potassium Level 4.1 mmol/L (3.5-5.0) Chloride Level 105 mmol/L (98-107) Carbon Dioxide Level 22 mmol/L (22-31) Blood Urea Nitrogen 41 mg/dl (7-18) Creatinine 0.90 mg/dl (0.52-1.04) Glomerular Filtration Rate Calc 59.4 Random Glucose 106 mg/dl (75-110) Calcium Level 8.9 mg/dl (8.4-10.2) Total Bilirubin 0.9 mg/dl (0.2-1.3) Aspartate Amino Transf (AST/SGOT) 17 U/L (0-35) Alanine Aminotransferase (ALT/SGPT) 25 U/L (0-56) Alkaline Phosphatase 55 U/L (0-126) Troponin I < 0.012 ng/ml Total Protein 6.1 g/dl (6.3-8.2) Albumin 3.5 g/dl (3.5-5.0) Lipase 42 U/L (23-300) Urine Color Yellow Urine Clarity Clear Urine pH 6.0 pH (4.8-9.5) Urine Specific [place] 1.020 Urine Protein Negative mg/dL (NEGATIVE) Urine Glucose (UA) Negative mg/dL (NEGATIVE) Urine Ketones 20 mg/dL (NEGATIVE) Urine Blood Negative (NEGATIVE) Urine Nitrite Negative (NEGATIVE) Urine Bilirubin Negative (NEGATIVE) Urine Urobilinogen 2.0 mg/dL (0.2-1.9) Urine Leukocyte Esterase Trace (NEGATIVE) Urine RBC 1 /HPF (0-2/HPF) Urine WBC 1 /HPF (0-5/HPF) Urine Squamous Epithelial Cells Many /LPF (</=FEW) Urine Transitional Epithelial Cells Few /LPF (NONE-FEW) Urine Bacteria Few /HPF (NONE-FEW) Urine Mucus Few /HPF (NONE-FEW) Chemistry Test 08/07/18 12:56 08/07/18 14:10 White Blood Count 10.6 k/uL (4.5-11.0) Red Blood Count 4.01 M/uL (4.17-5.56) Hemoglobin 12.6 g/dL (12.0-16.0) Hematocrit 37.4 % (34.0-47.0) Mean Corpuscular Volume 93.3 fL (80.0-96.0) Mean Corpuscular Hemoglobin 31.4 pg (26.0-33.0) Mean Corpuscular Hemoglobin Concent 33.6 g/dL (32.0-36.0) Red Cell Distribution Width 15.7 % (11.5-14.5) Platelet Count 322 K/uL (150-450) Mean Platelet Volume 6.7 fL (7.2-11.1) Neutrophils (%) (Auto) 76.8 % (39.4-72.5) Lymphocytes (%) (Auto) 15.7 % (17.6-49.6) Monocytes (%) (Auto) 6.5 % (4.1-12.4) Eosinophils (%) (Auto) 0.5 % (0.4-6.7) Basophils (%) (Auto) 0.5 % (0.3-1.4) Nucleated RBC Relative Count (auto) 0.1 /100WBC Neutrophils # (Auto) 8.2 K/uL (2.0-7.4) Lymphocytes # (Auto) 1.7 K/uL (1.3-3.6) Monocytes # (Auto) 0.7 K/uL (0.3-1.0) Eosinophils # (Auto) 0.1 K/uL (0.0-0.5) Basophils # (Auto) 0.0 K/uL (0.0-0.1) Nucleated RBC Absolute Count (auto) 0.01 K/uL Glomerular Filtration Rate Calc 59.4 Calcium Level 8.9 mg/dl (8.4-10.2) Total Bilirubin 0.9 mg/dl (0.2-1.3) Aspartate Amino Transf (AST/SGOT) 17 U/L (0-35) Alanine Aminotransferase (ALT/SGPT) 25 U/L (0-56) Alkaline Phosphatase 55 U/L (0-126) Troponin I < 0.012 ng/ml Total Protein 6.1 g/dl (6.3-8.2) Albumin 3.5 g/dl (3.5-5.0) Lipase 42 U/L (23-300) Urine Color Yellow Urine Clarity Clear Urine pH 6.0 pH (4.8-9.5) Urine Specific [place] 1.020 Urine Protein Negative mg/dL (NEGATIVE) Urine Glucose (UA) Negative mg/dL (NEGATIVE) Urine Ketones 20 mg/dL (NEGATIVE) Urine Blood Negative (NEGATIVE) Urine Nitrite Negative (NEGATIVE) Urine Bilirubin Negative (NEGATIVE) Urine Urobilinogen 2.0 mg/dL (0.2-1.9) Urine Leukocyte Esterase Trace (NEGATIVE) Urine RBC 1 /HPF (0-2/HPF) Urine WBC 1 /HPF (0-5/HPF) Urine Squamous Epithelial Cells Many /LPF (</=FEW) Urine Transitional Epithelial Cells Few /LPF (NONE-FEW) Urine Bacteria Few /HPF (NONE-FEW) Urine Mucus Few /HPF (NONE-FEW) Urinalysis Test 08/07/18 14:10 Urine Color Yellow Urine Clarity Clear Urine pH 6.0 pH (4.8-9.5) Urine Specific [place] 1.020 Urine Protein Negative mg/dL (NEGATIVE) Urine Glucose (UA) Negative mg/dL (NEGATIVE) Urine Ketones 20 mg/dL (NEGATIVE) Urine Blood Negative (NEGATIVE) Urine Nitrite Negative (NEGATIVE) Urine Bilirubin Negative (NEGATIVE) Urine Urobilinogen 2.0 mg/dL (0.2-1.9) Urine Leukocyte Esterase Trace (NEGATIVE) Urine RBC 1 /HPF (0-2/HPF) Urine WBC 1 /HPF (0-5/HPF) Urine Squamous Epithelial Cells Many /LPF (</=FEW) Urine Transitional Epithelial Cells Few /LPF (NONE-FEW) Urine Bacteria Few /HPF (NONE-FEW) Urine Mucus Few /HPF (NONE-FEW) EKG/Imaging EKG Interpretation 12 lead EKG: Rhythm: sinus tachycardia [place]: normal QRS: normal ST segments: normal sinus tachycardia. No stemi Monitor Interpretation: Sinus Tachycardia ED Course/Re-evaluation ED Course Pt improves in ED; tolerates po, symptoms resolve. Rpt exam shows no guarding, peritoneal sgs. Pt comfortable and wishes to leave; I discussed monitoring, further eval, though symptoms most c/w gastritis of unk etiology.Anny PO without difficulty. Pt agrees to rtn for worsening symptoms or any concerns. Decision to Disposition Date: Aug 07, 2018 Decision to Disposition Time: 14:42 Depart Departure Latest Vital Signs Vital Signs Date Time Temp Pulse Resp B/P (MAP) Pulse Ox O2 Delivery O2 Flow Rate FiO2 08/07/18 14:03 ??? 91 08/07/18 14:00 111/75 (87) 08/07/18 13:07 98.7 14 Room Air Impression: Primary Impression: Vomiting Condition: Improved Disposition: HOME OR SELF-CARE Referrals: MEMO OSEGUERA (PCP) New Scripts Ondansetron Hcl (ZOFRAN) 4 Mg Tablet 4 MG PO Q8H for Nausea, #10 TAB Prov: SHANA GALLARDO MD 08/07/18 Patient Instructions: Acute Nausea and Vomiting (ED) Additional Instructions: As we discussed, please return immediately or at any time for any concerning pain, inability to tolerate fluids, or any concerns. Problem Qualifiers Primary Impression: Vomiting Vomiting type: unspecified Vomiting Intractability: non-intractable Nausea presence: with nausea Qualified Codes: R11.2 - Nausea with vomiting, unspecified SHANA GALLARDO MD Aug 07, 2018 13:40
--- NOTE | 2018-08-07 13:51 | EKG ---
FACILITY: [facility] [place] PATIENT NAME: CAMACHO COLLADO : [id number] MR: [id number] V: [id number] EXAM DATE: ORDERING PHYSICIAN: SHANA GALLARDO TECHNOLOGIST: RAFAL Test Reason : SICK TO STOMACH Blood Pressure : / mmHG Vent. Rate : 103 BPM Atrial Rate : 103 BPM P-R Int : 150 ms QRS Dur : 076 ms QT Int : 354 ms P-R-T Axes : 031 020 067 degrees QTc Int : 463 ms Sinus tachycardia R wave progression consistent with an old ant/sep NM vs lead placement No ST-T abnormalities Relatively unchanged from previous Confirmed by JAH MAGAÑA ([id number]) on 08/07/2018 6:26:57 PM Referred By: PAULINA Confirmed By:JAH MAGAÑA
--- NOTE | 2018-08-07 14:08 | RADIOLOGY IMAGING REPORT ---
[place] [facility] [place] Berta Blake : 1930 MR: [id number] V: [id number] EXAM DATE: ORDERING PHYSICIAN: SHANA GALLARDO TECHNOLOGIST: Location: [facility] - [place] Patient: Berta Blake : 1930 Visit/Account:[id number] Date of Sevice: 08/07/2018 Study: Single portable view of the chest. Indication: Chest pain. Comparison study: January 23, 2018 Technique: Single AP view of the chest demonstrates no evidence of acute infiltrate. There is no evid ence of pleural effusion or pneumothorax. The mediastinal, cardiac, and diaphragmatic contours are un remarkable. There is an implanted port present within the left chest. The tip of the catheter is at the confluenc e of the brachiocephalic veins. This is unchanged. IMPRESSION: No acute cardiopulmonary abnormality identified. Report Dictated By: Troy Perdomo at 08/07/2018 2:00 PM Report E-Signed By: Troy Perdomo at 08/07/2018 2:03 PM WSN:[id number]
[2018-08-07] MEDS ORDERED: ONDA4TAB97 PO (14:45)
[2018-08-07] MEDS ORDERED: MECLIZINE HCL 25 MG TAB PO ONE (15:20)
[2018-08-07] MEDS ORDERED: NS(*) 0.9% 500 ML BAG 500 ML IV ONE (15:20)
[2018-08-07] MEDS ORDERED: IOPAMIDOL 76% 75 ML INFUS BTL 75 ML ONE (15:23)
--- NOTE | 2018-08-07 16:17 | RADIOLOGY IMAGING REPORT ---
FACILITY: [facility] PATIENT NAME: Berta Blake : 1930 MR: [id number] V: [id number] EXAM DATE: ORDERING PHYSICIAN: SHANA GALLARDO TECHNOLOGIST: [place] [facility] [place]: Berta Blake : 1930 Visit/Account:[id number] Date of Sevice: 08/07/2018 HEAD W/O CONTRAST Provided history: vertigo, difficulty word finding Additional pertinent history: none TECHNIQUE: Imaging was obtained from the skull base through the vertex without intravenous contrast. Source images were reformatted in the coronal sagittal planes. One of the following dose optimization techniques was utilized in the performance of this exam: Autom ated exposure control; adjustment of the mA and/or kV according to the patient's size; or use of an i terative reconstruction technique. Specific details can be referenced in the facility's radiology CT exam operational policy. Additional imaging: none COMPARISON STUDIES: 01/23/18 FINDINGS: Brain volume: There is prominence of the ventricles, sulci and fissures that is appropriate for age. Acute cortical ischemia: None Chronic cortical and ganglionic ischemia: none significant Hemorrhage: None Masses / edema: None White matter: There are scattered white matter hypodensities, non-specific in morphology and distrib ution that are within normal limits for age. Vessels: Normal Extra-axial: None significant Calvarium / scalp: Negative Skull base: Incomplete fusion of posterior C1 ring, not significant. Visualized sinuses / orbits: negative IMPRESSION: Age-appropriate changes. No evidence of mass, acute ischemia or hemorrhage. Report Dictated By: Burt Lacy MD at 08/07/2018 4:11 PM Report E-Signed By: Burt Lacy MD at 08/07/2018 4:13 PM WSN:[id number]
--- NOTE | 2018-08-07 16:38 | RADIOLOGY IMAGING REPORT ---
FACILITY: [facility] - [place] PATIENT NAME: Berta Blake : 1930 MR: [id number] V: [id number] EXAM DATE: ORDERING PHYSICIAN: SHANA GALLARDO TECHNOLOGIST: Location: [facility] - [place] Patient: Berta Blake : 1930 Visit/Account:[id number] Date of Sevice: 08/07/2018 ABDOMEN/PELVIS WITH CONTRAST Provided history: vertigo, difficulty word finding Additional pertinent history: Chest pain, vomiting bile TECHNIQUE: Spiral scan was obtained from the lower chest through the symphysis with intravenous cont rast Contrast dose: 75 mL Isovue 370 intravenously. Source images were reformatted in the coronal and sagittal planes. Additional series performed today: none One of the following dose optimization techniques was utilized in the performance of this exam: Autom ated exposure control; adjustment of the mA and/or kV according to the patient's size; or use of an i terative reconstruction technique. Specific details can be referenced in the facility's radiology CT exam operational policy. COMPARISON STUDIES: CT 02/21/12 FINDINGS: Lower chest: Minor scarring both lung bases. Liver/biliary: Negative Pancreas: There is generalized moderate diffuse volume loss of the pancreas. No calcification or aldo trisha dilation. No definable pancreatic mass. Lateral to the pancreatic, there is soft tissue protrud ing into the lumen of the second duodenum nearly encircling it measuring up to 2.3 cm craniocaudal di ameter and 1.5 x 2 cm transverse, new from prior. This is at the level of the ampulla. The duodenal bulb is moderately distended with a thin wall. The gastric antrum demonstrates circumferential low- attenuation thickening of the wall but no definable mass. There are several borderline prominent regional lymph nodes. The largest and most concerning is on i mage 45 in the para-aortic space measuring 14 x 14 mm. There are additional retroperitoneal nodes ar e smaller. Spleen: Negative Adrenal glands: Negative Kidneys / ureters / bladder / genitourinary / retroperitoneum: Negative Bowel / peritoneum / mesenteries: Stomach is mildly distended with a thin wall leading to low-attenua tion circumflex circumflex a partial thickening of the wall the antrum and a dilated first duodenum. See above comments. Vessels: age appropriate plaque Lymph nodes: See above. No significant additional lymph node findings. Body wall: Negative Bones: Advanced degenerative changes lumbar spine. Moderate anterior inferior wedging of T12 that ap pears old. No concerning lytic or blastic bone lesions. Right hip compression screw placed in the i nterim. IMPRESSION: 1. There is a near-circumferential mass involving the lower second segment of the duodenum producing partial obstruction to the duodenal bulb and stomach, highly concerning for primary adenocarcinoma. There is probable early upper abdominal lymphadenopathy metastatic disease as above. No hepatic les ions are visible. 2. Otherwise expected age-related changes. Report called to SHANA GALLARDO, 08/07/2018 4:14 PM. Report Dictated By: Burt Lacy MD at 08/07/2018 4:14 PM Report E-Signed By: Burt Lacy MD at 08/07/2018 4:34 PM WSN:[id number]
[2018-08-07] MEDS ORDERED: FLUSH 10 ML SYR IVP PRN (18:00)
[2018-08-07] MEDS ORDERED: MORPHINE 2 MG/ML SYR IVP PRN (18:00)
[2018-08-07] MEDS ORDERED: NALOXONE HCL 0.4 MG/ML VIAL IVP PRN (18:00)
[2018-08-07 18:03] VITALS: BP 116/79
[2018-08-07] MEDS: NS(*) 0.9% 1000 ML BAG 1,000 ML IV PRN (18:20)
[2018-08-07] MEDS: ONDANSETRON 4 MG/2 ML VIAL IVP PRN ×2 (18:20→23:59)
--- NOTE | 2018-08-07 18:27 | Gen Surgery History & Physical ---
History of Present Illness Chief Complaint N/V History of Present Illness 88yo female presents to the ER with 1 day of N/V. [place] good prior to this. She does have chronic mild epigastric abdominal pain for over 5 years and she has had pancreatitis in the past. She has a h/o melanoma and more recently endometrial cancer. In the ER, she had persistent N/V and was found on CT abd/pelvis to have a D2 lesion that appears to be causing obstruction. I have been consulted for further evaluation and management. 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, stage 3 Status: Chronic (3) Atrial fibrillation Status: Chronic (4) Glaucoma Status: Chronic (5) Hypertension Status: Chronic (6) H/O total hysterectomy Onset Date: ~ 05/12/2014 Status: Resolved (7) H/O dilation and curettage Onset Date: ~ 2004 Status: Resolved (8) Non-smoker Status: Chronic (9) Alcohol consumption of one to four drinks per day Status: Chronic Home Meds Active Scripts Ondansetron Hcl (ZOFRAN) 4 Mg Tablet, 4 MG PO Q8H for Nausea, #10 TAB Prov:SHANA GALLARDO MD 08/07/18 Reported Medications Gabapentin (GABAPENTIN) 300 Mg Capsule, 600 MG PO BID, CAPSULE 01/02/18 Amiodarone HCl/D5w (Amiodarone 150 mg/100 ml-D5w) 150 Mg/100 Ml (1.5 Mg/Ml) Plast..bag, 200 MG PO BID 01/02/18 Apixaban (ELIQUIS) 5 Mg Tablet, 5 MG PO 10/25/17 Pyridoxine Hcl (VITAMIN B-6) 25 Mg Tablet, 25 MG PO DAILY 08/22/17 Cyanocobalamin (Vitamin B-12) (VITAMIN B-12) 1,000 Mcg Tablet, 1000 MCG PO DAILY 08/22/17 Calcium Carbonate (CALCIUM) 500 Mg Tab.chew, 500 MG PO BID, TAB.CHEW 08/16/16 Allergies: Coded Allergies: No Known Drug Allergies (Unverified , 08/07/18) Patient History: FH: breast cancer MOTHER, Onset:68 FH: colon cancer GRANDFATHER, Onset:70 Review of Systems All Systems Reviewed/Normal: Yes, Except as Noted Gastrointestinal: Nausea, Vomiting, Abdominal Pain Exam General Appearance: Alert, Awake, Afebrile, Other (Vomiting as I evaluate her; she refuses NG tube.) Neuro: No Gross deficits (other than chronic chemo-related neuropathy) Eyes: PERRLA GI: Other (Soft, epigastric TTP) Extremities: Warm, Perfused Psych: Alert & Oriented X3, Appropriate Mood & Affect Medical Decision Making Data Points Result Diagram: 08/07/18 1256 08/07/18 1256 Assessment and Plan Problems: (1) Duodenal obstruction Status: Acute Assessment & Plan: 08/07/18: I have explained the CT findings to the patient in detail. I have told her that there is a lesion in her duodenum that is suspicious for a cancer but this would need to be further evaluated endoscopic ally. She immediately responded that if it is cancer, she does not wish to have any surgery or chemotherapy but just wishes to be made comfortable. I discussed the possibility of a feeding tube and she indicated that she is not interested in any sort of feeding tube. She is interested in and EGD to evaluate her duodenum. Will admit her to Med/Surg, NPO, IV fluids, nausea and pain control. Will ask the Dr. Calderón with the Hospitalist Service to consult and help manage her comorbidities and assist with end of life planning if required. Will hold off on her Eliquis and will plan on EGD with biopsies the day after tomorrow after her Eliquis has worn off. I have explained this plan to her in detail and she is in agreement with this plan. Condition Stable. Time Spent: < 30 min Venous Thromboembolism VTE Risk Physician Assess for VTE Risk: Yes Patient's VTE Risk: Low VTE Diagnostic Test 2 Days Prior to Admit: No Antithrombotics Is Pt On Any Antithrombotics?: No CHUNG BETANCOURT MD Aug 07, 2018 18:27
[2018-08-07 19:23] VITALS: BP 112/78
[2018-08-07] MEDS ORDERED: PANTOPRAZOLE SOD 40 MG IV VIAL IVP ONE (19:35)
[2018-08-07 19:45] VITALS: BP 122/55
[2018-08-07] MEDS ORDERED: PROMETHAZINE 25 MG/ML 1 ML AMP IVP PRN (19:45)
[2018-08-07] MEDS ORDERED: PATIENT'S OWN MED OP SCH (19:55)
--- NOTE | 2018-08-07 20:13 | Hospitalist Consultation ---
History of Present Illness Requesting Physician Sven Reason for Consult atrial fibrillation History of Present Illness 88yo female with atrial fibrillation, and endometrial cancer who came to the ER for nausea and vomiting. The vomiting started about 1030am. It was initially clear vomitus, but turned dark. She denies cp/sob. She has some epigastric discomfort. Since coming to the floor, she has been vomiting up dark blood about 300-400cc total. History Problems: (1) Atrial fibrillation Status: Chronic (2) Adenocarcinoma of endometrium, stage 3 Status: Chronic (3) Hypertension Status: Chronic (4) Melanoma Status: Resolved (5) Glaucoma Status: Chronic (6) Cataracts, bilateral Status: Resolved Home Meds Active Scripts Ondansetron Hcl (ZOFRAN) 4 Mg Tablet, 4 MG PO Q8H for Nausea, #10 TAB Prov:SHANA GALLARDO MD 08/07/18 Reported Medications Gabapentin (GABAPENTIN) 300 Mg Capsule, 600 MG PO BID, CAPSULE 01/02/18 Amiodarone HCl/D5w (Amiodarone 150 mg/100 ml-D5w) 150 Mg/100 Ml (1.5 Mg/Ml) Plast..bag, 200 MG PO BID 01/02/18 Apixaban (ELIQUIS) 5 Mg Tablet, 5 MG PO 10/25/17 Pyridoxine Hcl (VITAMIN B-6) 25 Mg Tablet, 25 MG PO DAILY 08/22/17 Cyanocobalamin (Vitamin B-12) (VITAMIN B-12) 1,000 Mcg Tablet, 1000 MCG PO DAILY 08/22/17 Calcium Carbonate (CALCIUM) 500 Mg Tab.chew, 500 MG PO BID, TAB.CHEW 08/16/16 Allergies: Coded Allergies: No Known Drug Allergies (Unverified , 08/07/18) Patient History: FH: breast cancer MOTHER, Onset:68 FH: colon cancer GRANDFATHER, Onset:70 Other Social/Family Hx She has 2 girls. No tobacco use. Hx Smoking: No Smoking Status: Never Smoker Exposure to Second Hand Smoke?: Yes Caffeine Intake: Coffee, Tea, Soda Caffeine/Cups Per Day: 2 Hx Alcohol Use: Yes (yanique before bedtime) Hx Substance Use Disorder: No History of IV Drug Use: No Review of Systems All Systems Reviewed/Normal: Yes, Except as Noted Exam Vital Signs Vital Signs Date Time Temp Pulse Resp B/P (MAP) Pulse Ox O2 Delivery O2 Flow Rate FiO2 08/07/18 19:23 131 24 112/78 (89) 95 Room Air 08/07/18 18:03 99.6 General Appearance: Alert, Awake, Other (Pale. Looks a bit uncomfortable) Neuro: No Gross deficits Cardiovascular: Other (Tachy, regular, no m/r/g) Respiratory: Clear to Auscultation GI: Other (Soft, non-distended. Mild discomfort with epigastric pressure) Extremities: Other (R leg is bigger than the L chronically. No pitting edema) Integumentary: No Jaundice, No Cyanosis Medical Decision Making Data Points Result Diagram: 08/07/18 1256 08/07/18 1256 Item Value Date Time Aspartate Amino Transf (AST/SGOT) 17 U/L 08/07/18 1256 Alanine Aminotransferase (ALT/SGPT) 25 U/L 08/07/18 1256 Alkaline Phosphatase 55 U/L 08/07/18 1256 Troponin I < 0.012 ng/ml 08/07/18 1256 Neutrophils (%) (Auto) 76.8 % H 08/07/18 1256 Lymphocytes (%) (Auto) 15.7 % L 08/07/18 1256 Monocytes (%) (Auto) 6.5 % 08/07/18 1256 Eosinophils (%) (Auto) 0.5 % 08/07/18 1256 Basophils (%) (Auto) 0.5 % 08/07/18 1256 Urine Leukocyte Esterase Trace H 08/07/18 1410 Urine RBC 1 /HPF 08/07/18 1410 Urine WBC 1 /HPF 08/07/18 1410 Urine Squamous Epithelial Cells Many /LPF H 08/07/18 1410 Urine Transitional Epithelial Cells Few /LPF 08/07/18 1410 EKG / Imaging EKG Interpretation Vent. Rate : 103 BPM Atrial Rate : 103 BPM P-R Int : 150 ms QRS Dur : 076 ms QT Int : 354 ms P-R-T Axes : 031 020 067 degrees QTc Int : 463 ms Sinus tachycardia R wave progression consistent with an old ant/sep PA vs lead placement No ST-T abnormalities Relatively unchanged from previous Confirmed by JAH MAGAÑA ([id number]) on 08/07/2018 6:26:57 PM Imaging Abd/Pelvis CT - 1. There is a near-circumferential mass involving the lower second segment of the duodenum producing partial obstruction to the duodenal bulb and stomach, highly concerning for primary adenocarcinoma. There is probable early upper abdominal lymphadenopathy metastatic disease as above. No hepatic lesions are visible. 2. Otherwise expected age-related changes. Head CT - Age-appropriate changes. No evidence of mass, acute ischemia or hemorrhage. CXR - No acute cardiopulmonary abnormality identified. Assessment and Plan Problems: (1) Duodenal obstruction Status: Acute Assessment & Plan: She presented with acute onset of n/v that has turned to hematemesis. By CT there is partial obstruction of the second portion of the duodenum secondary to a near-circumferential mass that is worrisome for adenocarcinoma. See Dr. Betancourt's note for details. Certainly, Eliquis is contributing to the hematemesis, which will be stopped. Will start Protonix IV for acid suppression. The patient is a DNR/DNI. (2) Atrial fibrillation Status: Chronic Assessment & Plan: She is currently in a sinus rhythm. She takes amiodarone 200mg M//. It will be held for now and will follow rate. (3) Glaucoma Status: Chronic Assessment & Plan: Continue chronic Lumigan and Lotemax eye drops. (4) Peripheral neuropathy Status: Chronic Assessment & Plan: She is chronically on gabapentin. Will hold for now secondary to the n/v. (5) Adenocarcinoma of endometrium, stage 3 Status: Chronic Assessment & Plan: Followed by Dr. Lemos. The patient received adjuvant chemotherapy with carboplatin and Taxol for six cycles, completed September 30, 2014. She received also adjuvant radiation therapy with external beam radiation therapy and intracavitary seed implant. She is currently in remission. Copies to: ANYI LEMOS MD; MEMO OSEGUERA; CHUNG BETANCOURT MD ; Venous Thromboembolism Antithrombotics Is Pt On Any Antithrombotics?: No Exam Sepsis Risk: No Definite Risk JAH MAGAÑA MD Aug 07, 2018 20:13
[2018-08-07] MEDS: LOTEPREDNOL ETABONATE 5 ML BOTTLE OD SCH (21:00)
[2018-08-07] MEDS: BIMATOPROST 2.5 ML BTL 2.5 ML BTL OP SCH (21:00)
[2018-08-08] VITALS (12 sets, daily range): BP systolic 106–127; BP diastolic 48–76
[2018-08-08] MEDS ORDERED: PROMETHAZINE 25 MG/ML 1 ML AMP IVP PRN (00:45)
[2018-08-08] MEDS: NS(*) 0.9% 1000 ML BAG 1,000 ML IV PRN ×3 (06:12→18:10)
[2018-08-08 06:22] LABS: PLATELET COUNT, AUTOMATED 209 K/uL (150-450)
--- NOTE | 2018-08-08 07:16 | General Surgery Progress Note ---
Subjective Progress Notes Subjective After admission, pt had several episodes of hematemesis and 2 melanotic stools overnight. Last hematemesis was before 2200 last night and last melanotic stool was at about 0100 this morning. Feels better this morning. Physical Exam Vital Signs Date Time Temp Pulse Resp B/P (MAP) Pulse Ox O2 Delivery O2 Flow Rate FiO2 08/08/18 04:30 92 08/08/18 04:27 98.4 18 127/59 (81) 99 Nasal Cannula 2.0 Intake and Output 08/08/18 07:00 Intake Total 1500 ml Output Total 1000 ml Balance 500 ml Intake IV Total 1500 ml Output Emesis 1000 ml # Voids 3 # Bowel Movements 2 # Emeses 3 General Appearance: Alert, Awake, No Acute Distress, Afebrile GI: Other (Mild epigastric TTP) Extremities: Warm, Perfused Result Diagram: 08/08/18 0549 08/08/18 0549 Monitor Interpretation: Sinus Tachycardia Assessment and Plan Problems: (1) Duodenal obstruction Status: Acute Assessment & Plan: 08/07/18: I have explained the CT findings to the patient in detail. I have told her that there is a lesion in her duodenum that is suspicious for a cancer but this would need to be further evaluated endoscopically. She immediately responded that if it is cancer, she does not wish to have any surgery or chemotherapy but just wishes to be made comfortable. I discussed the possibility of a feeding tube and she indicated that she is not interested in any sort of feeding tube. She is interested in and EGD to evaluate her duodenum. Will admit her to Med/Surg, NPO, IV fluids, nausea and pain control. Will ask the Dr. Calderón with the Hospitalist Service to consult and help manage her comorbidities and assist with end of life planning if required. Will hold off on her Eliquis and will plan on EGD with biopsies the day after tomorrow after her Eliquis has worn off. I have explained this plan to her in detail and she is in agreement with this plan. 08/08/18: Now having GI bleeding, likely from the duodenal lesion but could also be from other sources such as PUD. Will change PPI to PPI gtt. I did have a long conversation this morning with the patient and she is agreeable with a blood transfusion so will give her 2 Units of pRBC and recheck her H/H, she will likely require more than 2 Units of pRBC. Will keep off NSAIDS and blood thinners. Plan on EGD tomorrow morning. She remains adamant that she does not wish to have surgery, even for GI bleeding. Will follow her closely today, continue bowel rest, IV fluids. Condition Stable. Time Spent: < 30 min Exam Sepsis Risk: No Definite Risk CHUNG BETANCOURT MD Aug 08, 2018 07:16
[2018-08-08] MEDS ORDERED: PANTOPRAZOLE SOD(*)40 MG VIAL 80 MG in NS(*) 0.9% 100 ML BAG 100 ML IVPB ONE (07:20)
[2018-08-08] MEDS ORDERED: NS(*) 0.9% 500 ML BAG 500 ML IV ONE (08:10)
[2018-08-08] MEDS: PANTOPRAZOLE SOD(*)40 MG VIAL 80 MG in NS(*) 0.9% 100 ML BAG 100 ML IV SCH ×2 (08:44→18:12)
[2018-08-08] MEDS ORDERED: PANTOPRAZOLE SOD 40 MG IV VIAL IVP SCH ×2 (09:00)
[2018-08-08] MEDS: LOTEPREDNOL ETABONATE 5 ML BOTTLE OS SCH (09:15)
[2018-08-08] MEDS: LOTEPREDNOL ETABONATE 5 ML BOTTLE OD SCH ×2 (09:15→21:00)
--- NOTE | 2018-08-08 12:12 | Medical Nutrition Therapy ---
Nutrition Anthropometrics Height (Inches): 65.00 Height (Calculated Centimeters: 165.357384 Weight (Pounds): 155 Weight (Calculated Kilograms): 70.307 BMI: 25.8 Shaheed Nutrition Score: Probably Inadequate Shaheed Nutrition Risk Score: 17 Dietary Referral Nutrition Risk Factors: Nutrition Risk Comment: Physical Findings Physical Appearance: Overweight BMI 25-29 Skin Appearance Skin Appearance: Edema Edema Location Modifier: Right Edema Location: Lower Extremity Type of Edema: Degree of Edema: 2+ Gastrointestinal Symptoms GI Symtoms: Nausea, Vomiting Tube Present: Bowel Sounds: Recent Bowel Pattern: Stool Characteristics: Nutritional Diagnosis Nutritional Risk Acuity 1: GI Obstruction Nutritional Risk Acuity 3: OR & > 80 yrs, Nausea, GI Bleed Past Medical History: endometrial cancer, pancreatitis, a-fib, glaucoma, HTN Nutritional Acuity: 1-High Nutrition Diagnosis: Altered GI Function Nutrition Etiology: Physiological Causes Nutrition Problem/Etiology/Sym: Altered GI function r/t physiological causes AEB duodenal obstruction, GI bleeding, vomitting blood, adb pain. Energy Requirement: 1250 (M-SJ*1.1) Protein Requirement: 80 (1.1g/kg) Fluid Requirement: 2100 (30ml/kg) Diet Type: NPO (Nothing by Mouth) Nutrition Intervention: Incr diet as tolerated Nutrition Monitoring & Eval Nutrition Goals: Eat 75-100% Meal, Drink > 1500 cc/day RD Patient Assessment Time: [address] Assessment Type: RD Assessment Patient Nutrition Acuity: 1-High Follow Up Date: Aug 10, 2018 Nutritional Comment: 08/08 Pt admitted for duodenal obstruction with n/v. On floor pt vomitting dark blood, 300-400cc in total. Pt NPO. Hx of endometrial cancer, pancreatitis, a-fib, glaucoma, HTN. Pt hbg 6.4, Hct 19.2, BG 137, BUN 46. If obstruction is cancer, pt does not want surgery and/or chemo, but comfort care. Pt is high nutrition risk. Will follow. LAKESHIA RUTH Aug 08, 2018 09:37
[2018-08-08] MEDS ORDERED: AMIO200T49 PO (13:21)
[2018-08-08] MEDS ORDERED: ACET-2708 PO (13:26)
--- NOTE | 2018-08-08 13:33 | Hospitalist Progress Note ---
Subjective Progress Notes Subjective 88F admitted for SBO. Sleeping comfortably this am, staff without new concerns. Receiving PRBC 2U had some hematemesis and hematochezia overnight. Physical Exam Vital Signs Date Time Temp Pulse Resp B/P (MAP) Pulse Ox O2 Delivery O2 Flow Rate FiO2 08/08/18 13:18 99.6 86 18 115/57 08/08/18 10:30 100 Nasal Cannula 1.5 Intake and Output 08/08/18 07:00 Intake Total 1500 ml Output Total 1000 ml Balance 500 ml Intake IV Total 1500 ml Output Emesis 1000 ml # Voids 3 # Bowel Movements 2 # Emeses 3 General Appearance: No Acute Distress ENT: Normal Cardiovascular: Normal Rhythm & Peripheral Pulses Respiratory: No Respiratory Distress GI: Soft and Non-Tender Extremities: Soft and Non Tender, Warm, Pulses, Perfused Result Diagram: 08/08/18 0549 08/08/18 0549 Monitor Interpretation: Sinus Tachycardia Assessment and Plan Problems: (1) Duodenal obstruction Status: Acute Assessment & Plan: She presented with acute onset of n/v that turned to hematemesis. By CT there is partial obstruction of the second portion of the duodenum secondary to a near-circumferential mass that is worrisome for adenocarcinoma. See Dr. Machuca's note for details. Eliquis stopped. Protonix IV for acid suppression. The patient is a DNR/DNI. Plan for endoscopy with biopsies tomorrow if bleeding resolved. (2) Atrial fibrillation Status: Chronic Assessment & Plan: She is currently in a sinus rhythm. She takes amiodarone 200mg M/W/. It will be held for now and will follow rate. (3) Glaucoma Status: Chronic Assessment & Plan: Continue chronic Lumigan and Lotemax eye drops. (4) Peripheral neuropathy Status: Chronic Assessment & Plan: She is chronically on gabapentin. Will hold for now secondary to the n/v. (5) Adenocarcinoma of endometrium, stage 3 Status: Chronic Assessment & Plan: Followed by Dr. Ramirez. The patient received adjuvant chemotherapy with carboplatin and Taxol for six cycles, completed September 30, 2014. She received also adjuvant radiation therapy with external beam radiation therapy and intracavitary seed implant. She is currently in remission. Exam Sepsis Risk: No Definite Risk FARMER JT WARD DO Aug 08, 2018 13:33
[2018-08-08] MEDS ORDERED: ACETAMINOPHEN 325 MG TAB PO PRN (14:55)
[2018-08-08] MEDS ORDERED: diphenhydrAMINE 25 MG CAP PO PRN (14:55)
[2018-08-08] MEDS ORDERED: diphenhydrAMINE 50 MG/ML VIAL IVP PRN (15:15)
[2018-08-08] MEDS ORDERED: ACETAMINOPHEN(*)1000 MG/100 ML 100 ML IVPB SCH (18:00)
[2018-08-08] MEDS: ACETAMINOPHEN(*)1000 MG/100 ML 100 ML IVPB PRN (18:10)
[2018-08-08] MEDS: BIMATOPROST 2.5 ML BTL 2.5 ML BTL OP SCH (21:00)
[2018-08-09] VITALS (11 sets, daily range): BP systolic 94–136; BP diastolic 44–83
[2018-08-09] MEDS: ACETAMINOPHEN(*)1000 MG/100 ML 100 ML IVPB PRN (02:29)
[2018-08-09] MEDS: PANTOPRAZOLE SOD(*)40 MG VIAL 80 MG in NS(*) 0.9% 100 ML BAG 100 ML IV SCH ×3 (02:30→23:30)
[2018-08-09] MEDS: NS(*) 0.9% 1000 ML BAG 1,000 ML IV PRN ×2 (04:31→19:25)
[2018-08-09 06:06] LABS: PLATELET COUNT, AUTOMATED 150 K/uL (150-450)
--- NOTE | 2018-08-09 06:20 | Hospitalist Progress Note ---
Subjective Progress Notes Subjective 88F admitted for SBO with mass encircling duodenum. NATALY overnight, N/V much improved. To OR for endoscopic biopsy today. Patient Complains of: Gastrointestinal: No Nausea, No Vomiting Physical Exam Vital Signs Date Time Temp Pulse Resp B/P (MAP) Pulse Ox O2 Delivery O2 Flow Rate FiO2 08/09/18 03:24 65 08/09/18 03:00 98.8 08/09/18 02:20 18 122/62 (82) 99 Nasal Cannula 1.0 Intake and Output 08/09/18 06:59 Intake Total 3314 ml Balance 3314 ml Intake IV Total 2314 ml Blood Product 1000 ml # Voids 5 General Appearance: Alert, Awake, No Acute Distress Neuro: No Gross deficits Eyes: PERRLA ENT: Normal Cardiovascular: Normal Rhythm & Peripheral Pulses Respiratory: No Respiratory Distress GI: Soft and Non-Tender Musculoskeletal: No Weakness/Pain Extremities: Soft and Non Tender, Warm, Pulses, Perfused; No Edema Integumentary: Skin Intact without Lesion / Mass Psych: Alert & Oriented X3 Result Diagram: 08/08/18 1650 08/09/18 0550 Monitor Interpretation: Sinus Tachycardia Assessment and Plan Problems: (1) Duodenal obstruction Status: Acute Assessment & Plan: She presented with acute onset of n/v that turned to hematemesis. By CT there is partial obstruction of the second portion of the duodenum secondary to a near-circumferential mass that is worrisome for adenocarcinoma. See Dr. Machuca's note for details. Eliquis stopped. Protonix IV for acid suppression. The patient is a DNR/DNI. Plan for endoscopy with biopsies today. Currently she does not want to pursue aggressive therapies. (2) Atrial fibrillation Status: Chronic Assessment & Plan: She is currently in a sinus rhythm. She takes amiodarone 200mg M//. It will be held for now and will follow rate. (3) Glaucoma Status: Chronic Assessment & Plan: Continue chronic Lumigan and Lotemax eye drops. (4) Peripheral neuropathy Status: Chronic Assessment & Plan: She is chronically on gabapentin. Resume gabapentin. (5) Adenocarcinoma of endometrium, stage 3 Status: Chronic Assessment & Plan: Followed by Dr. Ramirez. The patient received adjuvant chemotherapy with carboplatin and Taxol for six cycles, completed September 30, 2014. She received also adjuvant radiation therapy with external beam radiation therapy and intracavitary seed implant. She is currently in remission. Exam Sepsis Risk: No Definite Risk FARMER JT WARD DO Aug 09, 2018 06:20
[2018-08-09] MEDS ORDERED: NORMOSOL R SOLN(*) 1000 ML BAG 1,000 ML IV ONE (07:00)
[2018-08-09] MEDS ORDERED: PROPOFOL EMUL(*) 10MG/ML 20 ML 20 ML ONE ×2 (08:10→08:26)
[2018-08-09] MEDS ORDERED: SUCCINYLCHOL CHL 200MG/10ML VL ONE (08:10)
[2018-08-09] MEDS ORDERED: LIDOCAINE MPF 1% 5 ML VIAL ONE ×2 (08:10→08:26)
[2018-08-09] MEDS ORDERED: ONDANSETRON 4 MG/2 ML VIAL ONE ×2 (08:10→09:13)
--- NOTE | 2018-08-09 08:57 | General Surgery Progress Note ---
Subjective Progress Notes Subjective No complaints. No pain. No N/V, diarrhea, or constipation. No further hematemesis or blood in stools. Physical Exam Vital Signs Date Time Temp Pulse Resp B/P (MAP) Pulse Ox O2 Delivery O2 Flow Rate FiO2 08/09/18 07:51 98 Nasal Cannula 1.5 08/09/18 07:24 98.3 84 17 129/65 (86) Intake and Output 08/09/18 07:00 Intake Total 3314 ml Balance 3314 ml Intake IV Total 2314 ml Blood Product 1000 ml # Voids 6 General Appearance: Alert, Awake, No Acute Distress, Afebrile Chest: Other (Left chest Power Port inspected, no erythema or drainage. I don't feel any swelling particularly although this was reported after an infusion this morning. Exam is limited by a translucent dressing as the port is currently accessed.) GI: Soft and Non-Tender Extremities: Warm, Perfused Result Diagram: 08/09/18 0550 08/09/18 0550 Monitor Interpretation: Sinus Tachycardia Assessment and Plan Problems: (1) Duodenal obstruction Status: Acute Assessment & Plan: 08/07/18: I have explained the CT findings to the patient in detail. I have told her that there is a lesion in her duodenum that is suspicious for a cancer but this would need to be further evaluated endoscopically. She immediately responded that if it is cancer, she does not wish to have any surgery or chemotherapy but just wishes to be made comfortable. I discussed the possibility of a feeding tube and she indicated that she is not interested in any sort of feeding tube. She is interested in and EGD to evaluate her duodenum. Will admit her to Med/Surg, NPO, IV fluids, nausea and pain control. Will ask the Dr. Calderón with the Hospitalist Service to consult and help manage her comorbidities and assist with end of life planning if required. Will hold off on her Eliquis and will plan on EGD with biopsies the day after tomorrow after her Eliquis has worn off. I have explained this plan to her in detail and she is in agreement with this plan. 08/08/18: Now having GI bleeding, likely from the duodenal lesion but could also be from other sources such as PUD. Will change PPI to PPI gtt. I did have a long conversation this morning with the patient and she is agreeable with a blood transfusion so will give her 2 Units of pRBC and recheck her H/H, she will likely require more than 2 Units of pRBC. Will keep off NSAIDS and blood thinners. Plan on EGD tomorrow morning. She remains adamant that she does not wish to have surgery, even for GI bleeding. Will follow her closely today, continue bowel rest, IV fluids. 08/09/18: GI bleeding has stopped. Good response to 2 Units of pRBC yesterday, Hb down a little this morning to 8.6 but no other signs of active GI bleeding. Will follow H/H and will plan on transfusion if Hb less than 8. Hold off on blood thinners/NSAIDS. Will plan on EGD this morning. Pt agreeable with proceeding with this plan. (2) Upper GI bleeding Status: Resolved (3) Anemia Status: Acute Condition Stable. Time Spent: < 30 min Exam Sepsis Risk: No Definite Risk Problem Qualifiers (1) Anemia: Anemia type: other cause Other causes of anemia: acute posthemorrhagic Qualified Codes: D62 - Acute posthemorrhagic anemia CHUNG BETANCOURT MD Aug 09, 2018 08:57
[2018-08-09] MEDS: LOTEPREDNOL ETABONATE 5 ML BOTTLE OD SCH ×2 (09:08→20:24)
[2018-08-09] MEDS: LOTEPREDNOL ETABONATE 5 ML BOTTLE OS SCH (09:08)
[2018-08-09] MEDS ORDERED: DEXAMETHASONE SOD 4 MG/ML VIAL ONE (09:11)
[2018-08-09] MEDS ORDERED: fentaNYL CITR 100 MCG/2 ML AMP ONE (09:35)
[2018-08-09] MEDS ORDERED: PROMETHAZINE 25 MG/ML 1 ML AMP ONE (10:34)
[2018-08-09] MEDS: SUCRALFATE 1 GM TAB PO SCH ×3 (12:23→20:23)
[2018-08-09] MEDS: ONDANSETRON 4 MG/2 ML VIAL IVP PRN (18:06)
[2018-08-09] MEDS: GABAPENTIN 300 MG CAP PO SCH (18:49)
[2018-08-09] MEDS: BIMATOPROST 2.5 ML BTL 2.5 ML BTL OP SCH (20:24)
[2018-08-10] VITALS (8 sets, daily range): BP systolic 91–124; BP diastolic 52–76
[2018-08-10] MEDS: NS(*) 0.9% 1000 ML BAG 1,000 ML IV PRN (05:11)
[2018-08-10] MEDS: SUCRALFATE 1 GM TAB PO SCH ×4 (06:09→21:55)
[2018-08-10 07:26] LABS: PLATELET COUNT, AUTOMATED 159 K/uL (150-450)
[2018-08-10] MEDS: GABAPENTIN 300 MG CAP PO SCH ×2 (08:33→21:55)
[2018-08-10] MEDS: LOTEPREDNOL ETABONATE 5 ML BOTTLE OD SCH ×2 (08:35→21:00)
[2018-08-10] MEDS ORDERED: KCL 2 MEQ/ML 20 MEQ/10 ML VIAL 20 MEQ in NS(*) 0.9% 1000 ML BAG 1,000 ML IV PRN (08:51)
--- NOTE | 2018-08-10 08:51 | Hospitalist Progress Note ---
Subjective Progress Notes Subjective She reports feeling "much better than I did a few days ago". No black/bloody stools. Appetite returning. Physical Exam Vital Signs Date Time Temp Pulse Resp B/P (MAP) Pulse Ox O2 Delivery O2 Flow Rate FiO2 08/10/18 07:18 99.0 77 105/53 (70) 96 Room Air 08/10/18 03:15 0.5 08/09/18 15:08 18 Intake and Output 08/10/18 06:59 Intake Total 3508 ml Output Total 5 ml Balance 3503 ml Intake Oral 320 ml IV Total 3188 ml Output Emesis 5 ml # Voids 8 # Bowel Movements 1 # Emeses 3 General Appearance: Alert, Awake Cardiovascular: Regular Rate and Rhythm (distant tones) Respiratory: Clear to Auscultation GI: Soft and Non-Tender Extremities: Warm, Perfused, Edema (trace right foot/ankle) Psych: Alert & Oriented X3 Result Diagram: 08/10/18 0657 08/10/18 0500 Monitor Interpretation: Normal Sinus Rhythm Assessment and Plan Problems: (1) Duodenal obstruction Status: Acute Assessment & Plan: She presented with acute onset of N/V with hematemesis. By CT there appeared to be partial obstruction of the second portion of the duodenum secondary to a near-circumferential mass that was worrisome for adenocarcinoma. Dr. Machuca performed EGD yesterday, which showed ulcers. She is on Protonix and Carafate. Eliquis (for a-fib) has been stopped. The patient is a DNR/DNI. She does not want to pursue aggressive therapies. (2) Anemia due to acute blood loss Status: Acute Assessment & Plan: She received 2 units PRBC on 08/08/18. Her Hgb/Hct did show some equilibration, but is stable as compared to yesterday. It does sound as if she may have some orthostatic symptoms. Will see how she does today. If significantly symptomatic may consider transfusion of an additional 2 units PRBC. (3) Atrial fibrillation Status: Chronic Assessment & Plan: She is currently maintaining sinus rhythm. She has been managed with amiodarone 200mg M/W/F and Eliquis. Both meds have been held for now. As she is maintaining sinus rhythm, would plan on at least temporarily stopping the Eliquis and resuming the amiodarone. She would need to follow up with her primary care/cardiology to discuss ongoing management. (4) Glaucoma Status: Chronic Assessment & Plan: Continue chronic Lumigan and Lotemax eye drops. (5) Peripheral neuropathy Status: Chronic Assessment & Plan: She is chronically on gabapentin. (6) Adenocarcinoma of endometrium, stage 3 Status: Chronic Assessment & Plan: Followed by Dr. Ramirez. The patient received adjuvant chemotherapy with carboplatin and Taxol for six cycles, completed September 30, 2014. She received also adjuvant radiation therapy with external beam radiation therapy and intracavitary seed implant. She is currently in remission. (7) Hypokalemia Status: Acute Assessment & Plan: Will replace with IV fluids. (8) Hypocalcemia Status: Acute Assessment & Plan: Will replace with IV calcium gluconate. Exam Sepsis Risk: No Definite Risk MATT GALDAMEZ MD Aug 10, 2018 08:51
[2018-08-10] MEDS ORDERED: KCL/NS* 20 MEQ/1000 ML PREMIX 1,000 ML IV PRN (09:00)
[2018-08-10] MEDS: LOTEPREDNOL ETABONATE 5 ML BOTTLE OS SCH (09:00)
[2018-08-10] MEDS ORDERED: KCL (*) 20 MEQ/100 ML PREMIX 100 ML IV ONE (09:00)
[2018-08-10] MEDS: PANTOPRAZOLE SOD(*)40 MG VIAL 80 MG in NS(*) 0.9% 100 ML BAG 100 ML IV SCH (10:00)
[2018-08-10] MEDS ORDERED: PANTOPRAZOLE SOD 40 MG TABEC PO ONE (10:35)
--- NOTE | 2018-08-10 10:40 | General Surgery Progress Note ---
Subjective Progress Notes Subjective No complaints this morning. No N/V or abdominal pain. Physical Exam Vital Signs Date Time Temp Pulse Resp B/P (MAP) Pulse Ox O2 Delivery O2 Flow Rate FiO2 08/10/18 07:34 96 Room Air 08/10/18 07:18 99.0 77 105/53 (70) 08/10/18 03:15 0.5 08/09/18 15:08 18 Intake and Output 08/10/18 07:00 Intake Total 3508 ml Output Total 5 ml Balance 3503 ml Intake Oral 320 ml IV Total 3188 ml Output Emesis 5 ml # Voids 8 # Bowel Movements 1 # Emeses 3 General Appearance: Alert, Awake, No Acute Distress, Afebrile GI: Soft and Non-Tender Extremities: Warm, Perfused Result Diagram: 08/10/18 0657 08/10/18 0500 Monitor Interpretation: Normal Sinus Rhythm Assessment and Plan Problems: (1) Peptic ulcer disease with hemorrhage Status: Acute Assessment & Plan: 08/07/18: I have explained the CT findings to the patient in detail. I have told her that there is a lesion in her duodenum that is suspicious for a cancer but this would need to be further evaluated endoscopically. She immediately responded that if it is cancer, she does not wish to have any surgery or chemotherapy but just wishes to be made comfortable. I discussed the possibility of a feeding tube and she indicated that she is not interested in any sort of feeding tube. She is interested in and EGD to evaluate her duodenum. Will admit her to Med/Surg, NPO, IV fluids, nausea and pain control. Will ask the Dr. Calderón with the Hospitalist Service to consult and help manage her comorbidities and assist with end of life planning if required. Will hold off on her Eliquis and will plan on EGD with biopsies the day after tomorrow after her Eliquis has worn off. I have explained this plan to her in detail and she is in agreement with this plan. 08/08/18: Now having GI bleeding, likely from the duodenal lesion but could also be from other sources such as PUD. Will change PPI to PPI gtt. I did have a long conversation this morning with the patient and she is agreeable with a blood transfusion so will give her 2 Units of pRBC and recheck her H/H, she will likely require more than 2 Units of pRBC. Will keep off NSAIDS and blood t hinners. Plan on EGD tomorrow morning. She remains adamant that she does not wish to have surgery, even for GI bleeding. Will follow her closely today, continue bowel rest, IV fluids. 08/09/18: GI bleeding has stopped. Good response to 2 Units of pRBC yesterday, Hb down a little this morning to 8.6 but no other signs of active GI bleeding. Will follow H/H and will plan on transfusion if Hb less than 8. Hold off on blood thinners/NSAIDS. Will plan on EGD this morning. Pt agreeable with proceeding with this plan. 08/10/18: Doing well. No duodenal mass found on EGD but pt does have c ircumferential antral ulcers. Will advance diet and will plan on UGI study and MRCP today or tomorrow. Will change PPI to PO and continue carafate. H/H stable, no further signs of GI bleeding. Pt is agreeable with this plan. (2) Duodenal obstruction Status: Resolved (3) Upper GI bleeding Status: Resolved (4) Anemia Status: Acute Condition Stable. Time Spent: < 30 min Exam Sepsis Risk: No Definite Risk Problem Qualifiers (1) Anemia: Anemia type: other cause Other causes of anemia: acute posthemorrhagic Qualified Codes: D62 - Acute posthemorrhagic anemia CHUNG BETANCOURT MD Aug 10, 2018 10:40
[2018-08-10] MEDS: CALCIUM CL 100 MG/1 ML SYR 1,000 MG in NS(*) 0.9% 100 ML BAG 100 ML IVPB ONE ×2 (11:32→13:58)
--- NOTE | 2018-08-10 12:42 | Medical Nutrition Therapy ---
Nutrition Anthropometrics Height (Inches): 65.00 Height (Calculated Centimeters: 165.845000 Weight (Pounds): 155 Weight (Calculated Kilograms): 70.307 BMI: 25.8 Shaheed Nutrition Score: Probably Inadequate Shaheed Nutrition Risk Score: 19 Dietary Referral Nutrition Risk Factors: Nutrition Risk Comment: Physical Findings Physical Appearance: Overweight BMI 25-29 Skin Appearance Skin Appearance: Edema Edema Location Modifier: Right Edema Location: Lower Extremity Type of Edema: Degree of Edema: 2+ Gastrointestinal Symptoms GI Symtoms: Appetite Changes Tube Present: Bowel Sounds: Recent Bowel Pattern: Stool Characteristics: Nutritional Diagnosis Nutritional Risk Acuity 3: OR & > 80 yrs, Nausea, GI Bleed Past Medical History: endometrial cancer, pancreatitis, a-fib, glaucoma, HTN Nutritional Acuity: 1-High Nutrition Diagnosis: Altered GI Function Nutrition Etiology: Physiological Causes Nutrition Problem/Etiology/Sym: Altered GI function r/t physiological causes AEB Peptic ulcer disease with hemorrhage, vomitting blood, adb pain. Energy Requirement: 1250 (M-SJ*1.1) Protein Requirement: 80 (1.1g/kg) Fluid Requirement: 2100 (30ml/kg) Diet Type: Diet as Tolerated JESUS/REG Nutrition Intervention: Cont diet as ordered, Encourage intake Additional Diet Restrictions: OFFER NUTR SUPPLEMENT Nutrition Monitoring & Eval Nutrition Goals: Eat 75-100% Meal RD Patient Assessment Time: [address] Assessment Type: RD Re-Assessment Patient Nutrition Acuity: 2-Moderate Follow Up Date: Aug 15, 2018 Nutritional Comment: 08/08 Pt admitted for duodenal obstruction with n/v. On floor pt vomitting dark blood, 300-400cc in total. Pt NPO. Hx of endometrial cancer, pancreatitis, a-fib, glaucoma, HTN. Pt hbg 6.4, Hct 19.2, BG 137, BUN 46. If obstruction is cancer, pt does not want surgery and/or chemo, but comfort care. Pt is high nutrition risk. Will follow. TB 08/10 Pt has dx Peptic ulcer disease with hemorrhage. Duodenal obstruction resolved. Hct cont low at 8.9 and hct at 26.2. Diet advanced to regular but no intake reported at this time. Will offer nutr supplment to increase kcal and protein intake. Cont to monitor and encourage intake. MARLEN IBARRA Aug 10, 2018 12:42
[2018-08-10] MEDS: BIMATOPROST 2.5 ML BTL 2.5 ML BTL OP SCH (21:00)
[2018-08-11] VITALS (8 sets, daily range): BP systolic 74–106; BP diastolic 53–77
[2018-08-11 05:49] LABS: PLATELET COUNT, AUTOMATED 177 K/uL (150-450)
[2018-08-11] MEDS: SUCRALFATE 1 GM TAB PO SCH ×4 (06:33→20:48)
--- NOTE | 2018-08-11 07:57 | General Surgery Progress Note ---
Subjective Progress Notes Subjective No complaints. No pain. No N/V or abdominal pain. Passing stool, dark. Physical Exam Vital Signs Date Time Temp Pulse Resp B/P (MAP) Pulse Ox O2 Delivery O2 Flow Rate FiO2 08/11/18 07:03 99 08/11/18 05:56 86 08/11/18 02:32 16 106/66 (79) Room Air 08/10/18 23:29 98.4 08/10/18 22:00 1.0 Intake and Output 08/11/18 06:59 Intake Total 891 ml Balance 891 ml Intake Oral 650 ml IV Total 241 ml # Voids 6 # Bowel Movements 1 General Appearance: Alert, Awake, No Acute Distress, Afebrile GI: Soft and Non-Tender Extremities: Warm, Perfused Result Diagram: 08/11/1852108/11/18521 Monitor Interpretation: Normal Sinus Rhythm Assessment and Plan Problems: (1) Peptic ulcer disease with hemorrhage Status: Acute Assessment & Plan: 08/07/18: I have explained the CT findings to the patient in detail. I have told her that there is a lesion in her duodenum that is suspicious for a cancer but this would need to be further evaluated endoscopically. She immediately responded that if it is cancer, she does not wish to have any surgery or chemotherapy but just wishes to be made comfortable. I discussed the possibility of a feeding tube and she indicated that she is not interested in any sort of feeding tube. She is interested in and EGD to evaluate her duodenum. Will admit her to Med/Surg, NPO, IV fluids, nausea and pain control. Will ask the Dr. Calderón with the Hospitalist Service to consult and help manage her comorbidities and assist with end of life planning if required. Will hold off on her Eliquis and will plan on EGD with biopsies the day after tomorrow after her Eliquis has worn off. I have explained this plan to her in detail and she is in agreement with this plan. 08/08/18: Now having GI bleeding, likely from the duodenal lesion but could also be from other sources such as PUD. Will change PPI to PPI gtt. I did have a long conversation this morning with the patient and she is agreeable with a blood transfusion so will give her 2 Units of pRBC and recheck her H/H, she will likely require more than 2 Units of pRBC. Will keep off NSAIDS and blood thinners. Plan on EGD tomorrow morning. She remains adamant that she does not wish to have surgery, even for GI bleeding. Will follow her closely today, continue bowel rest, IV fluids. 08/09/18: GI bleeding has stopped. Good response to 2 Units of pRBC yesterday, Hb down a little this morning to 8.6 but no other signs of active GI bleeding. Will follow H/H and will plan on transfusion if Hb less than 8. Hold off on blood thinners/NSAIDS. Will plan on EGD this morning. Pt agreeable with proceeding with this plan. 08/10/18: Doing well. No duodenal mass found on EGD but pt does have circumferential antral ulcers. Will advance diet and will plan on UGI study and MRCP today or tomorrow. Will change PPI to PO and continue carafate. H/H stable, no further signs of GI bleeding. Pt is agreeable with this plan. 08/11/18: Doing well. Will get UGI and MRCP today. If these are without problems then will d/c her to home tomorrow on PPI and carafate. (2) Duodenal obstruction Status: Resolved (3) Upper GI bleeding Status: Resolved (4) Anemia Status: Acute Condition STable. Time Spent: < 30 min Exam Sepsis Risk: No Definite Risk Problem Qualifiers (1) Anemia: Anemia type: other cause Other causes of anemia: acute posthemorrhagic Qualified Codes: D62 - Acute posthemorrhagic anemia CHUNG BETANCOURT MD Aug 11, 2018 07:57
[2018-08-11] MEDS ORDERED: NS(*) 0.9% 50 ML BAG 50 ML ONE (08:09)
[2018-08-11] MEDS ORDERED: GADOBENATE 529MG/1ML 15ML VIAL IVP ONE (08:09)
[2018-08-11] MEDS ORDERED: BARIUM SULFATE 340 GM POWD ONE (08:26)
[2018-08-11] MEDS ORDERED: BARIUM SULFATE 176 GM BTL PO ONE (08:26)
[2018-08-11] MEDS ORDERED: AMIODARONE 200 MG TAB PO SCH (09:00)
[2018-08-11] MEDS: PANTOPRAZOLE SOD 40 MG TABEC PO SCH (09:52)
[2018-08-11] MEDS: LOTEPREDNOL ETABONATE 5 ML BOTTLE OS SCH (09:52)
[2018-08-11] MEDS: GABAPENTIN 300 MG CAP PO SCH ×2 (09:52→20:48)
[2018-08-11] MEDS: LOTEPREDNOL ETABONATE 5 ML BOTTLE OD SCH ×2 (09:53→20:46)
--- NOTE | 2018-08-11 10:11 | RADIOLOGY IMAGING REPORT ---
FACILITY: [facility] PATIENT NAME: Berta Blake : 1930 MR: [id number] V: [id number] EXAM DATE: ORDERING PHYSICIAN: CHUNG BETANCOURT TECHNOLOGIST: [place] [facility] [place]a [place] : 1930 Visit/Account:[id number] Date of Sevice: 08/10/2018 MRI CHOLANGIOPANCREAT W/WO CON HISTORY: Duodenal mass on CT, not seen on endoscopy TECHNIQUE: Multiplanar multisequence magnetic resonance imaging of the abdomen without and with intr avenous contrast including magnetic resonance cholangiopancreatography (MRCP). CONTRAST: 15 mL MultiHance IV. COMPARISON: CT abdomen and pelvis 08/07/2018 FINDINGS: Visualized lung bases: Grossly unremarkable. Liver: Negative. Gallbladder: Normal. No evidence of gallstone. Bile ducts: Intrahepatic bile ducts are normal in caliber. Common bile duct is normal in size, measu ring 7 mm. There is no evidence of filling defect in the common bile duct. Spleen: Negative. Adrenal glands: Negative. Pancreas: The pancreas is atrophied. There is no suspicious pancreatic mass. Pancreatic duct is nor mal in size. Kidneys: Negative. Vessels/spaces/nodes: No bulky adenopathy or ascities. Visualized GI: The stomach and the sweep of the duodenum appear normal. At the previously seen possi ble duodenal mass, there is the appearance of a slight mucosal irregularity, however it may represent a normal fold in the second portion the duodenum. There is no discrete abnormal mass or enhancement . Bones/soft tissues: Unremarkable. IMPRESSION: 1. In the superior the duodenum, there is a slight mucosal irregularity in the second portion, that may represent a normal fold in the duodenum. There is no discrete evidence of suspicious mass. Ther e is no duodenal adenopathy or obstruction. 2. Normal appearance of the liver, gallbladder, pancreas, and pancreatic duct. According to the indication, an upper endoscopy was negative. I believe that the possible mass seen on the prior CT in the second portion the duodenum is likely a normal fold in the duodenum, and with a negative upper endoscopy, I feel no further imaging is needed. At most, a follow-up CT of the abdo men in one year could be performed to confirm no change in the area of the duodenum. Report Dictated By: Adrian Cunningham at 08/11/2018 9:50 AM Report E-Signed By: Adrian Cunningham at 08/11/2018 10:06 AM WSN:[email or web address]
--- NOTE | 2018-08-11 10:43 | RADIOLOGY IMAGING REPORT ---
[place] [facility] [place]: Berta Blake : 1930 MR: [id number] V: [id number] EXAM DATE: ORDERING PHYSICIAN: CHUNG BETANCOURT TECHNOLOGIST: Location: [facility] Patient: Berta Blake : 1930 Visit/Account:[id number] Date of Sevice: 08/10/2018 UPPER GI SERIES W/O AIR Indication: Hematochezia. Comparison: None. Radiation dose: DAP 1668 uGym2; AK 48.2 mGy Findings: Upper GI was performed with both thin and thick barium after the ingestion of effervescent crystals. The mucosa of the esophagus is smooth without evidence of ulcer, mass, or erosion. Multip le tertiary peristaltic waves were seen. Hypokinesia is identified.. There was no gastroesophageal reflux. Images of the stomach are normal, with normal fold pattern identified. There is a large diverticulum on the third portion of the duodenum. Normal peristalsis is seen. Impression: 1. No evidence of ulcer mass or stricture. 2. Hypokinesia of the esophagus is seen, with multiple tertiary waves identified. 3. Benign-appearing diverticula third portion of the duodenum. Report Dictated By: Adrian Cunningham at 08/11/2018 10:37 AM Report E-Signed By: Adrian Cunnnigham at 08/11/2018 10:39 AM WSN:[email or web address]
[2018-08-11] MEDS ORDERED: LR 500 ML BAG 500 ML IV ONE (11:15)
--- NOTE | 2018-08-11 14:33 | Hospitalist Progress Note ---
Subjective Progress Notes Subjective 88F admitted for SBO, NATALY overnight. CT and small bowel with follow through today. Had antral ulcers with no visualized duodenal mass on endoscopy. Patient Complains of: Gastrointestinal: No Nausea, No Vomiting Physical Exam Vital Signs Date Time Temp Pulse Resp B/P (MAP) Pulse Ox O2 Delivery O2 Flow Rate FiO2 08/11/18 14:13 106 91/74 (80) 08/11/18 11:49 98.1 16 94 Nasal Cannula 1.0 Intake and Output 08/11/18 06:59 Intake Total 891 ml Balance 891 ml Intake Oral 650 ml IV Total 241 ml # Voids 6 # Bowel Movements 1 General Appearance: Alert, Awake, No Acute Distress Neuro: No Gross deficits Eyes: PERRLA ENT: Normal Neck: No Masses Cardiovascular: Other (irregularly irregular) Respiratory: No Respiratory Distress GI: Soft and Non-Tender Musculoskeletal: No Weakness/Pain Extremities: Soft and Non Tender, Warm, Pulses, Perfused Integumentary: Skin Intact without Lesion / Mass Psych: Alert & Oriented X3 Result Diagram: 08/11/1852108/11/18 05 Monitor Interpretation: Normal Sinus Rhythm Assessment and Plan Problems: (1) Duodenal obstruction Status: Resolved Assessment & Plan: She presented with acute onset of N/V with hematemesis. By CT there appeared to be partial obstruction of the second portion of the duodenum secondary to a near-circumferential mass that was worrisome for dianne ocarcinoma. Dr. Machuca performed EGD yesterday, which showed ulcers. She is on Protonix and Carafate. Eliquis (for a-fib) has been stopped. The patient is a DNR/DNI. She does not want to pursue aggressive therapies. MRI shows fold in duodenum but no mass. Anticipate discharge tomorrow. (2) Anemia due to acute blood loss Status: Acute Assessment & Plan: She received 2 units PRBC on 08/08/18. Her Hgb/Hct did show some equilibration, stable. (3) Atrial fibrillation Status: Chronic Assessment & Plan: She is currently maintaining sinus rhythm. She has been managed with amiodarone 200mg M/W/F and Eliquis. Resumed amiodarone, will need to follow up with PCP and cardiology to evaluate resuming Eliquis. (4) Glaucoma Status: Chronic Assessment & Plan: Continue chronic Lumigan and Lotemax eye drops. (5) Peripheral neuropathy Status: Chronic Assessment & Plan: She is chronically on gabapentin. (6) Adenocarcinoma of endometrium, stage 3 Status: Chronic Assessment & Plan: Followed by Dr. Ramirez. The patient received adjuvant chemotherapy with carboplatin and Taxol for six cycles, completed September 30, 2014. She received also adjuvant radiation therapy with external beam radiation therapy and intracavitary seed implant. She is currently in remission. (7) Hypokalemia Status: Acute Assessment & Plan: Improved. (8) Hypocalcemia Status: Acute Assessment & Plan: Improved. PRN replacement. Exam Sepsis Risk: No Definite Risk FARMER JT WARD DO Aug 11, 2018 14:32
[2018-08-11] MEDS ORDERED: SUCR1TAB51 PO (19:23)
[2018-08-11] MEDS ORDERED: PANT40TA65 PO (19:23)
[2018-08-11] MEDS: BIMATOPROST 2.5 ML BTL 2.5 ML BTL OP SCH (20:48)
[2018-08-12 00:01] VITALS: BP 116/61
[2018-08-12 03:41] VITALS: BP 109/60
--- NOTE | 2018-08-12 05:57 | Short(Outpt) Discharge Summary ---
Discharge Summary Reason for Hosp/Final Diag: (1) Peptic ulcer disease with hemorrhage Status: Acute Hospital Course & Plan: 08/07/18: I have explained the CT findings to the patient in detail. I have told her that there is a lesion in her duodenum that is suspicious for a cancer but this would need to be further evaluated endoscopically. She immediately responded that if it is cancer, she does not wish to have any surgery or chemotherapy but just wishes to be made comfortable. I discussed the possibility of a feeding tube and she indicated that she is not interested in any sort of feeding tube. She is interested in and EGD to evaluate her duodenum. Will admit her to Med/Surg, NPO, IV fluids, nausea and pain control. Will ask the Dr. Calderón with the Hospitalist Service to consult and help manage her comorbidities and assist with end of life planning if required. Will hold off on her Eliquis and will plan on EGD with biopsies the day after tomorrow after her Eliquis has worn off. I have explained this plan to her in detail and she is in agreement with this plan. 08/08/18: Now having GI bleeding, likely from the duodenal lesion but could also be from other sources such as PUD. Will change PPI to PPI gtt. I did have a long conversation this morning with the patient and she is agreeable with a blood transfusion so will give her 2 Units of pRBC and recheck her H/H, she will likely require more than 2 Units of pRBC. Will keep off NSAIDS and blood thinners. Plan on EGD tomorrow morning. She remains adamant that she does not wish to have surgery, even for GI bleeding. Will follow her closely today, continue bowel rest, IV fluids. 08/09/18: GI bleeding has stopped. Good response to 2 Units of pRBC yesterday, Hb down a little this morning to 8.6 but no other signs of active GI bleeding. Will follow H/H and will plan on transfusion if Hb less than 8. Hold off on blood thinners/NSAIDS. Will plan on EGD this morning. Pt agreeable with proceeding with this plan. 08/10/18: Doing well. No duodenal mass found on EGD but pt does have circumferential antral ulcers. Will advance diet and will plan on UGI study and MRCP today or tomorrow. Will change PPI to PO and continue carafate. H/H stable, no further signs of GI bleeding. Pt is agreeable with this plan. 08/11/18: Doing well. Will get UGI and MRCP today. If these are without problems then will d/c her to home tomorrow on PPI and carafate. 08/12/18: Doing well. No complaints. No pain. No N/V, hematemesis or blood in stools. UGI study and MRCP yesterday were unremarkable, no signs of cancer. Will d/c to home this morning. (2) Duodenal obstruction Status: Resolved (3) Upper GI bleeding Status: Resolved (4) Anemia Status: Acute Departure Discharge to: Home, Self Care Discharge Instructions Home Meds Active Scripts Sucralfate (SUCRALFATE) 1 Gm Tablet, 1 GM PO ACHS1, #120 TAB 0 Refills Take 4 times every day until gone then stop, no need for refills Prov:CHUNG BETANCOURT MD 08/11/18 Pantoprazole Sodium (PANTOPRAZOLE SODIUM) 40 Mg Tablet.dr, 1 TAB PO QDAY, #60 TAB 6 Refills Prov:CHUNG BETANCOURT MD 08/11/18 Reported Medications Acetaminophen/Diphenhydramine (ACETAMINOPHEN PM CAPLET) 1 Each Tablet, 1 EACH PO QHS for Sleep, TAB 08/08/18 Amiodarone Hcl (AMIODARONE HCL) 200 Mg Tablet, 200 MG PO DIRECTED for 30 Days, #60 08/08/18 Gabapentin (GABAPENTIN) 300 Mg Capsule, 600 MG PO BID, CAPSULE 01/02/18 Calcium Carbonate (CALCIUM) 500 Mg Tab.chew, 500 MG PO BID, TAB.CHEW 08/16/16 Discontinued Reported Medications Apixaban (ELIQUIS) 5 Mg Tablet, 5 MG PO BID 10/25/17 Amiodarone HCl/D5w (Amiodarone 150 mg/100 ml-D5w) 150 Mg/100 Ml (1.5 Mg/Ml) Plast..bag, 200 MG PO BID 01/02/18 Pyridoxine Hcl (VITAMIN B-6) 25 Mg Tablet, 25 MG PO DAILY 08/22/17 Cyanocobalamin (Vitamin B-12) (VITAMIN B-12) 1,000 Mcg Tablet, 1000 MCG PO DAILY 08/22/17 Discontinued Scripts Ondansetron Hcl (ZOFRAN) 4 Mg Tablet, 4 MG PO Q8H for Nausea, #10 TAB Prov:SHANA GALLARDO MD 08/07/18 Diet: Regular Activity: As Tolerated Special Instructions: Please call my office at [phone] (main number) or [phone] (nurse's line) if you have problems after going home or if you want to schedule an appointment to have your port removed. You may restart the Eliquis on Saturday, August 18, 2018, if you've had no further signs of bleeding. Avoid NSAIDS (motrin, ibuprofen, aleve, advil, naproxen, naprosyn, etc.). Tylenol is OK to use for headaches and other pains. Take pantoprazole every morning on an empty stomach and wait 30 minutes before eating. Take carafate before eating and at bedtime for 30 days and then when you run out of these tablets you can stop taking it, you don't need refills of this medication. You should stay on pantoprazole indefinitely and I've provided you with refills of this medication. Problem Qualifiers (1) Anemia: Anemia type: other cause Other causes of anemia: acute posthemorrhagic Qualified Codes: D62 - Acute posthemorrhagic anemia CHUNG BETANCOURT MD Aug 11, 2018 19:27
[2018-08-12] MEDS: SUCRALFATE 1 GM TAB PO SCH ×2 (06:18→11:36)
[2018-08-12 06:35] VITALS: BP 152/82
[2018-08-12] MEDS: LOTEPREDNOL ETABONATE 5 ML BOTTLE OD SCH (09:00)
[2018-08-12] MEDS: GABAPENTIN 300 MG CAP PO SCH (09:20)
[2018-08-12] MEDS: LOTEPREDNOL ETABONATE 5 ML BOTTLE OS SCH (09:20)
[2018-08-12] MEDS: PANTOPRAZOLE SOD 40 MG TABEC PO SCH (09:20)
[2018-08-12 11:13] VITALS: BP 154/98
[2018-08-12 11:37] VITALS: BP 143/76
--- NOTE | 2018-08-12 13:46 | Hospitalist Progress Note ---
Subjective Progress Notes Subjective She has no complaints this morning. She had no acute events overnight. She would like to go home today. Patient Complains of: Cardiovascular: No: Chest Pain Respiratory: No: Shortness of Breath Physical Exam Vital Signs Date Time Temp Pulse Resp B/P (MAP) Pulse Ox O2 Delivery O2 Flow Rate FiO2 08/12/18 11:37 83 16 143/76 (98) 94 Room Air 08/12/18 10:42 08/12/18 06:35 98.4 Intake and Output 08/12/18 07:00 Intake Total 1160 ml Balance 1160 ml Intake Oral 660 ml IV Total 500 ml # Voids 3 General Appearance: Alert, Awake, No Acute Distress, Afebrile Neuro: No Gross deficits Cardiovascular: Regular Rate and Rhythm Respiratory: No Respiratory Distress, Clear to Auscultation GI: Soft and Non-Tender Extremities: No Edema Psych: Alert & Oriented X3, Appropriate Mood & Affect Result Diagram: 08/11/1852108/11/18521 Monitor Interpretation: Normal Sinus Rhythm Assessment and Plan Problems: (1) Duodenal obstruction Status: Resolved Assessment & Plan: She presented with acute onset of N/V with hematemesis. By CT there appeared to be partial obstruction of the second portion of the duodenum secondary to a near-circumferential mass that was worrisome for adenocarcinoma. Dr. Machuca performed EGD yesterday, which showed ulcers. She is on Protonix and Carafate. Eliquis (for a-fib) has been stopped. The patient is a DNR/DNI. She does not want to pursue aggressive therapies. MRI shows fold in duodenum but no mass. She will be discharged today. (2) Anemia due to acute blood loss Status: Acute Assessment & Plan: She received 2 units PRBC on 08/08/18. Her Hgb/Hct did show some equilibration, stable. (3) Atrial fibrillation Status: Chronic Assessment & Plan: She is currently maintaining sinus rhythm. She has been managed with amiodarone 200mg M/W/F and Eliquis. Resumed amiodarone, will need to follow up with PCP and cardiology to evaluate resuming Eliquis. (4) Glaucoma Status: Chronic Assessment & Plan: Continue chronic Lumigan and Lotemax eye drops. (5) Peripheral neuropathy Status: Chronic Assessment & Plan: She is chronically on gabapentin. (6) Adenocarcinoma of endometrium, stage 3 Status: Chronic Assessment & Plan: Followed by Dr. Ramirez. The patient received adjuvant chemotherapy with carboplatin and Taxol for six cycles, completed September 30, 2014. She received also adjuvant radiation therapy with external beam radiation therapy and intracavitary seed implant. She is currently in remission. (7) Hypokalemia Status: Acute Assessment & Plan: Improved. (8) Hypocalcemia Status: Acute Assessment & Plan: Improved. Exam Sepsis Risk: No Definite Risk LACI TAYLOR ENTRANCE GUARD Aug 12, 2018 13:46
== END 2018-08-12 14:24 | disposition home health service (06) | DRG 378 ==
LOC: ER 13:11 → MED 17:33
PROVIDERS: ADMIT Surgery; ATTEND Surgery
PROC: 30233N1 Transfusion of Nonautologous Red Blood Cells into Peripheral Vein, Percutaneous Approach (ICD-10-PCS; 2018-08-08)
PROC: 0DB98ZX Excision of Duodenum, Via Natural or Artificial Opening Endoscopic, Diagnostic (ICD-10-PCS; principal; 2018-08-09 09:07)
DX: K26.4 Chronic or unspecified duodenal ulcer with hemorrhage (principal); D62 Acute posthemorrhagic anemia; K92.1 Melena; E87.6 Hypokalemia; E83.51 Hypocalcemia; M81.0 Age-related osteoporosis without current pathological fracture; Z66 Do not resuscitate; I10 Essential (primary) hypertension; E78.00 Pure hypercholesterolemia, unspecified; F41.8 Other specified anxiety disorders; G62.9 Polyneuropathy, unspecified; I48.2 Chronic atrial fibrillation; H40.9 Unspecified glaucoma; Z90.710 Acquired absence of both cervix and uterus; Z96.89 Presence of other specified functional implants; Z85.42 Personal history of malignant neoplasm of other parts of uterus
CPT/HCPCS: 36415; 36416; 70450; 71045; 74177; 74183; 74240; 81001; 82040; 82247; 82310; 82374; 82378; 82435; 82565; 82947; 82948; 83690; 83735; 84075; 84132; 84155; 84295; 84450; 84460; 84484; 84520; 85014; 85018; 85025; 86301; 86850; 86900; 86901; 86920; 87077; 88305; 93005; 96360; 96361; 97161; 97166; 99285; A9270; A9577; C9113; J0131; J0330; J1100; J2001; J2270; J2405; J2550; J2704; J3010; J3480; J3490; J7030; J7040; J7050; J7120; J8597; P9016; Q9967

== ENCOUNTER → 2018-08-07 | Outpatient (CLI) | payer MEDICARE, BC ==
[2016-08-19 13:26] VITALS: BMI 25.0
[~2018-08-07] MED LIST changes: +ACET-2708 PO; +AMIO200T49 PO; +ONDA4TAB97 PO; +PANT40TA65 PO; +SUCR1TAB51 PO
== END ==
LOC: AMB 12:41
PROVIDERS: ATTEND Nurse Practitioner
DX: R11.2 Nausea with vomiting, unspecified (principal); R53.1 Weakness; R42 Dizziness and giddiness; R50.9 Fever, unspecified
CPT/HCPCS: A0425; A0427

== ENCOUNTER 2018-09-25 13:00 | Outpatient (RCR) | payer MEDICARE, BC ==
[2016-08-19 13:26] VITALS: Wt 62.7 kg
[~2018-09-25 13:00] MED LIST changes: -DENOSUMAB 60 MG/1 ML SYR SUBQ ONE
[2018-09-25 13:42] VITALS: BP 160/84
[2018-09-25 13:59] LABS: PLATELET COUNT, AUTOMATED 366 K/uL (150-450)
--- NOTE | 2018-09-29 04:04 | ONCOLOGY FOLLOW UP NOTE ---
EVENT DATE: September 25, 2018 CHIEF COMPLAINT Followup for endometrial carcinoma. HISTORY OF PRESENT ILLNESS Patient is an 88-year-old female who was seen today in followup. Overall, she is feeling well. She developed hematemesis in July 2018. She underwent endoscopy, which showed ulcers. She was treated with Protonix and Carafate and continues on Protonix. She feels back to baseline at this time. She does have chronic neuropathy in both feet as well as her right hand. She will also receive Prolia today for osteoporosis. She denies any other new complaints. 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 At that time she had developed abnormal vaginal bleeding. She underwent TERELL/BSO on 05/12/14, and final pathology was positive for endometrioid adenocarcinoma. Tumor was 5 cm with 100% invasion into the myometrium with focal serosal involvement. Lymphovascular invasion positive, but no cervical stromal or parametrial involvement (stage IIIC-1, pT3A pPN1). Completed adjuvant chemotherapy for four cycles with carboplatin and Taxol in September 2014, followed by radiation therapy with external beam radiation and intracavitary radiation therapy. Disease has been quiescent since that time. PAST MEDICAL HISTORY 1. Endometrial carcinoma, April 2014. 2. Melanoma of the cheek, 2005. 3. Pancreatitis, 2012. 4. Atrial fibrillation. 5. Ulcer, July 2018. PAST SURGICAL HISTORY 1. TERELL/BSO, 05/12/14. 2. Mastectomy. 3. Tonsillectomy. FAMILY HISTORY Cancer in the brother and mother. SOCIAL HISTORY Patient is . She has two grown daughters. 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 She has never smoked. She does not drink alcohol. MEDICATIONS 1. Pantoprazole 40 mg daily. 2. Amiodarone 200 mg. 3. Gabapentin 600 mg b.i.d. 4. Calcium carbonate 500 mg b.i.d. REVIEW OF SYSTEMS A 12-point review of systems is performed and is negative except as stated above. PHYSICAL EXAMINATION VITAL SIGNS: Weight 62.7 kg, blood pressure 160/84, pulse 84, respirations 16, temperature 97.9, O2 saturation 98%. GENERAL: Patient is a well-developed, well-nourished female in no acute distress. HEAD: Normocephalic, atraumatic. EYES: Sclerae anicteric. MOUTH: Moist mucous membranes. LUNGS: Clear bilaterally. CARDIOVASCULAR: Heart rate regular, 84 per minute, without murmur, S3 or S4. ABDOMEN: Soft, with mild midepigastric tenderness. Active bowel sounds. EXTREMITIES: No edema. Arthritic changes in both hands. NEUROLOGIC: Nonfocal. LABORATORY CBC today reveals a WBC of 5.5, hemoglobin 12.5, hematocrit 37.8, platelets 366,000. CMP is within normal limits. CA125 is 8. IMPRESSION AND PLAN The patient is an 88-year-old female diagnosed with stage IIIC-1 endometrial adenocarcinoma in April 2014. Underwent total abdominal hysterectomy/bilateral salpingo-oophorectomy followed by adjuvant chemotherapy with carboplatin and Taxol, completed September 2014. She then completed adjuvant radiation therapy. Disease has been quiescent since that time. 1. Endometrial adenocarcinoma. No signs or symptoms of disease recurrence. CA125 has remained stable since completion of chemotherapy. 2. Ulcer. Recently developed hematemesis. Endoscopy revealed ulcer. She continues on Protonix and feels she is doing well with this. She does have some mild midepigastric tenderness, but "nothing like before." No evidence of anemia. 3. Osteoporosis. Continue Prolia 60 mg today and every six months. 4. Neuropathy. Chronic peripheral neuropathy in both feet and right hand. This is somewhat controlled with gabapentin, which she will continue. 5. Follow up with Dr. Ramirez in three months for continued care. CBC, CMP, and CA125 will be drawn at that time. MTDD
--- NOTE | 2018-09-29 04:08 | ONCOLOGY FOLLOW UP NOTE ---
EVENT DATE: September 25, 2018 CHIEF COMPLAINT Followup for endometrial adenocarcinoma. HISTORY OF PRESENT ILLNESS Patient is an 88-year-old female who was seen today in followup. She was diagnosed with a stage IIIC-1 endometrial adenocarcinoma in April 2014. She underwent TERELL/BSO with lymphadenectomy and pelvic washing in April 2014. She received four cycles of adjuvant chemotherapy with carboplatin and Taxol, completed September 2014. DICTATION ENDS HERE MTDD
== END 2018-12-23 ==
LOC: SPU 13:00
PROVIDERS: ATTEND Internal Medicine Hematology
DX: Z85.42 Personal history of malignant neoplasm of other parts of uterus (principal); M81.0 Age-related osteoporosis without current pathological fracture; G62.9 Polyneuropathy, unspecified; Z79.899 Other long term (current) drug therapy
CPT/HCPCS: 36415; 85025; 86304; 96372; J0897; 82040; 82247; 82310; 82374; 82435; 82565; 82947; 84075; 84132; 84155; 84295; 84450; 84460; 84520

== ENCOUNTER → 2018-09-25 | Outpatient (CLI) | payer MEDICARE, BC ==
[2016-08-19 13:26] VITALS: BMI 25.0
[~2018-09-25] MED LIST changes: +ACET-2708 PO; -ALEN70TA2 PO; +ALEN70TA46 PO; +AMIO200T49 PO; +DENOSUMAB 60 MG/1 ML SYR SUBQ ONE; -GABA-503 PO; +GABA-533 PO; +ONDA4TAB97 PO; +PANT40TA65 PO; +SUCR1TAB51 PO
== END ==
LOC: SPU 14:28
PROVIDERS: ATTEND Nurse Practitioner Family
DX: M81.0 Age-related osteoporosis without current pathological fracture (principal)
CPT/HCPCS: 96372; J0897

== ENCOUNTER → 2018-12-12 | Outpatient (CLI) | payer MEDICARE, BC ==
[2016-08-19 13:26] VITALS: BMI 25.0
== END ==
LOC: LAB 12:38
PROVIDERS: ATTEND Internal Medicine Cardiovascular Disease
DX: I48.0 Paroxysmal atrial fibrillation (principal)
CPT/HCPCS: 36415; 84443

== ENCOUNTER 2019-01-14 16:47 | Outpatient (RCR) | payer MEDICARE, BC ==
[2016-08-19 13:26] VITALS: BMI 25.0
== END 2019-01-15 14:56 | disposition home or self-care (01) ==
LOC: SPU 16:47
PROVIDERS: ATTEND Internal Medicine Hematology
DX: C54.1 Malignant neoplasm of endometrium (principal)

== ENCOUNTER 2019-03-03 12:18 | Outpatient (RCR) | payer MEDICARE, BC ==
[2016-08-19 13:26] VITALS: BMI 25.0
[~2019-03-03 12:18] MED LIST changes: +NIAC500T89 PO; -[UNRECOGNIZED DRUG - CODE] PO
[2019-03-03 12:50] VITALS: BP 136/90
[2019-03-03 12:54] LABS: PLATELET COUNT, AUTOMATED 267 K/uL (150-450)
[2019-03-03] MEDS ORDERED: FURO20TA19 PO (13:39)
[2019-03-03] MEDS ORDERED: ALPR-429 PO (13:44)
--- NOTE | 2019-03-04 05:30 | ONCOLOGY FOLLOW UP NOTE ---
EVENT DATE: March 03, 2019 CHIEF COMPLAINT Followup for endometrial carcinoma. HISTORY OF PRESENT ILLNESS Patient is an 88-year-old female who is seen today in five-month followup. She continues to do well. However, due to her chronic neuropathy in both feet as well as her right hand, she has noted loss of balance. She uses her walker exclusively at home and presents in a wheelchair today. She had a GI bleed in July 2018, and upper endoscopy showed ulceration and she was treated with Protonix and Carafate. She continues on Protonix and has had no bleeding since then. She had been receiving Prolia on an [id number] basis, but feels that it is not necessary anymore. Otherwise, she denies any new complaints. She asked for a refill on Xanax. She uses this very sparingly for sleep. 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 At that time she had developed abnormal vaginal bleeding. She underwent TERELL/BSO on 05/12/14, and final pathology was positive for endometrioid adenocarcinoma. Tumor was 5 cm with 100% invasion into the myometrium with focal serosal involvement. Lymphovascular invasion positive, but no cervical stromal or parametrial involvement (stage IIIC-1, pT3A pPN1). Completed adjuvant chemotherapy for four cycles with carboplatin and Taxol in September 2014, followed by radiation therapy with external beam radiation and intracavitary radiation therapy. Disease has been quiescent since that time. PAST MEDICAL HISTORY 1. Endometrial carcinoma, April 2014. 2. Melanoma of the cheek, 2005. 3. Pancreatitis, 2012. 4. Atrial fibrillation. 5. Ulcer, July 2018. PAST SURGICAL HISTORY 1. TERELL/BSO, 05/12/14. 2. Mastectomy. 3. Tonsillectomy. FAMILY HISTORY Cancer in the brother and mother. SOCIAL HISTORY Patient is . She has two grown daughters. 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 She does not drink alcohol. MEDICATIONS 1. Pantoprazole 40 mg daily. 2. Amiodarone 200 mg. 3. Gabapentin 600 mg b.i.d. 4. Calcium carbonate 500 mg b.i.d. 5. Lasix 20 mg p.r.n. 6. Xanax 0.5 mg, one half tab at bedtime p.r.n. REVIEW OF SYSTEMS A 12-point review of systems is performed and is negative except as stated above. PHYSICAL EXAMINATION VITAL SIGNS: BP 136/88, P 80, R 16, temp 98.8, O2 sat 94%. GENERAL: Patient is a well-developed, well-nourished female in no acute distress. HEAD: Normocephalic, atraumatic. EYES: Sclerae anicteric. MOUTH: Moist mucous membranes. NECK: Supple. No palpable adenopathy. LUNGS: Clear bilaterally. CARDIOVASCULAR: Heart rate regular, 82 per minute. ABDOMEN: Soft, with active bowel sounds. No organomegaly. EXTREMITIES: Trade pedal edema, right greater than left. NEUROLOGIC: Nonfocal, although patient requires walker to ambulate due to balance issues and peripheral neuropathy. LABORATORY CBC today reveals a WBC of 5.7, hemoglobin 14.0, hematocrit 41.4, platelets 267,000. CMP is within normal limits. CA125 is pending. IMPRESSION The patient is an 88-year-old female diagnosed with stage IIIC-1 endometrial adenocarcinoma in April 2014. Underwent total abdominal hysterectomy/bilateral salpingo-oophorectomy followed by adjuvant chemotherapy with carboplatin and Taxol, completed in September 2014. She then completed adjuvant radiation therapy. Disease has been quiescent since that time. 1. Endometrial adenocarcinoma. No signs or symptoms of disease recurrence. CA125 is pending today but has remained stable since completion of chemotherapy. 2. Neuropathy. Patient has chronic peripheral neuropathy in both feet and her right hand. She feels it is somewhat helped by gabapentin, but does have issues with balance. She has participated in physical therapy/balance therapy, but feels she has "done all she can." She does live alone, but is very careful at home. 3. Insomnia. Requests a refill for Xanax 0.5 mg. This was called in for her. She uses one half tab at bedtime on a very p.r.n. basis. 4. Osteoporosis. She had been receiving Prolia on an [id number] basis, last given on 09/25/18. At this time, she defers further treatment. 5. Follow up in six months for continued care. CBC, CMP, and CA125 will be done at this time. Patient states she will call to make this appointment. SCOTT
== END 2019-04-08 13:21 | disposition home or self-care (01) ==
LOC: ONC 12:18
PROVIDERS: ATTEND Internal Medicine Hematology
DX: Z85.42 Personal history of malignant neoplasm of other parts of uterus (principal); Z92.21 Personal history of antineoplastic chemotherapy; Z92.3 Personal history of irradiation; G62.9 Polyneuropathy, unspecified; G47.00 Insomnia, unspecified; Z79.899 Other long term (current) drug therapy
CPT/HCPCS: 36415; 82040; 82247; 82310; 82374; 82435; 82565; 82947; 84075; 84132; 84155; 84295; 84450; 84460; 84520; 85025; 86304